=== PATIENT | female | born 1930 | race African-American/Black ===

== ENCOUNTER 2017-04-27 23:42 | Inpatient (IN) | payer MEDICARE, MEDICAID ==
[~2017-04-27] VITALS: Ht 167.6 cm; Wt 69.4 kg
[2017-04-28 00:56] LABS: INR 1.1; PARTIAL THROMBOPLASTIN TIME 23.7 sec (24.0-34.0); PROTHROMBIN TIME 11.1 sec
[2017-04-28 00:57] LABS: BASOPHILS % 0.4 % (0.0-2.0); EOSINOPHILS % 1.7 % (0.0-5.0); HEMATOCRIT. 37.6 % (36.0-48.0); HEMOGLOBIN. 12.2 g/dL (12.0-16.0); LYMPHOCYTES % 24.6 % (20.0-50.0); MEAN CORPUSCULAR HEMOGLOBIN 29.3 pg (28.0-32.0); MEAN CORPUSCULAR VOLUME 90.6 fL (81.0-99.0); MEAN PLATELET VOLUME 8.5 fl (7.4-10.4); MONOCYTES % 6.4 % (2.0-8.0); NEUTROPHILS % 66.9 % (40.0-76.0); PLATELET 187 x1000/uL (130-400); RED BLOOD CELL COUNT 4.15 mill/uL (4.2-5.4); RED CELL DISTRIBUTION WIDTH 17.2 % (11.6-14.6)
[2017-04-28 01:03] LABS: CARBON DIOXIDE 25 mEq/L (21-32); CHLORIDE 108 mEq/L (98-107); TROPONIN I < 0.02 ng/mL (0.00-0.04)
[2017-04-28 01:35] LABS: CLARITY URINE CLOUDY (CLEAR); COLOR URINE YELLOW (YELLOW); PH URINE 6.5 (4.5-8.0); PROTEIN URINE TRACE (NEGATIVE); SPECIFIC GRAVITY URINE 1.021 (1.005-1.030)
[2017-04-28 01:36] LABS: GLUCOSE URINE NEGATIVE (NEGATIVE); KETONES URINE NEGATIVE (NEGATIVE); LEUKOCYTE ESTERASE URINE 4+ (NEGATIVE); NITRITE URINE NEGATIVE (NEGATIVE); OCCULT BLOOD URINE 2+ (NEGATIVE)
[2017-04-28] MEDS ORDERED: PIPERACILLIN/TAZ 3.375G PREMIX 50 ML IV ONE (02:00)
[2017-04-28] MEDS ORDERED: SODIUM CHLORIDE 0.9% 1000ML BAG (SEPSIS BOLUS) IV ONE (02:00)
[2017-04-28 10:29] LABS: CARBON DIOXIDE 28 mEq/L (21-32); CHLORIDE 113 mEq/L (98-107)
[2017-04-28 10:30] LABS: BASOPHILS % 0.5 % (0.0-2.0); EOSINOPHILS % 3.4 % (0.0-5.0); HEMOGLOBIN. 11.5 g/dL (12.0-16.0); LYMPHOCYTES % 18.4 % (20.0-50.0); MEAN CORPUSCULAR HEMOGLOBIN 29.5 pg (28.0-32.0); MEAN CORPUSCULAR VOLUME 92.1 fL (81.0-99.0); MEAN PLATELET VOLUME 8.2 fl (7.4-10.4); MONOCYTES % 7.7 % (2.0-8.0); PLATELET 168 x1000/uL (130-400); RED BLOOD CELL COUNT 3.91 mill/uL (4.2-5.4); RED CELL DISTRIBUTION WIDTH 16.9 % (11.6-14.6)
[2017-04-28] MEDS ORDERED: SODIUM CHLORIDE 0.9% 1,000 ML IV SCH (10:30)
[2017-04-28] MEDS: PIPERACILLIN/TAZ 3.375G PREMIX 50 ML IV SCH ×2 (10:55→17:58)
[2017-04-28] MEDS: DEXTROSE 5% WATER 1,000 ML IV SCH (17:58)
[2017-04-28 23:30] VITALS: BP 131/82
[2017-04-29] VITALS (7 sets, daily range): BP systolic 111–131; BP diastolic 65–82
[2017-04-29] MEDS ORDERED: DEXTROSE 50% WATER 50ML SYRINGE IV PRN (00:15)
[2017-04-29] MEDS: PIPERACILLIN/TAZ 3.375G PREMIX 50 ML IV SCH ×4 (01:42→21:54)
[2017-04-29] MEDS: DEXTROSE 5% WATER 1,000 ML IV SCH ×2 (06:26→21:54)
[2017-04-29] MEDS: BLOOD SUGAR DIAGNOSTIC STRIP TEST SCH ×4 (06:26→21:18)
[2017-04-29] MEDS: INSULIN LISPRO 100 UNITS/ML SUBCUT SCH ×4 (08:21→21:31)
[2017-04-29] MEDS: ENOXAPARIN 40MG/0.4ML SYR SUBCUT SCH (15:57)
[2017-04-30] VITALS: BP 103/60
[2017-04-30 04:00] VITALS: BP 133/74
[2017-04-30] MEDS: PIPERACILLIN/TAZ 3.375G PREMIX 50 ML IV SCH ×2 (04:01→09:59)
[2017-04-30] MEDS: BLOOD SUGAR DIAGNOSTIC STRIP TEST SCH ×2 (06:23→12:38)
[2017-04-30] MEDS: INSULIN LISPRO 100 UNITS/ML SUBCUT SCH ×2 (07:57→12:38)
[2017-04-30 08:00] VITALS: BP 127/78
[2017-04-30] MEDS ORDERED: CEFEPIME IV (08:31)
[2017-04-30 09:41] LABS: BASOPHILS % 0.6 % (0.0-2.0); EOSINOPHILS % 3.5 % (0.0-5.0); HEMATOCRIT. 32.2 % (36.0-48.0); HEMOGLOBIN. 10.4 g/dL (12.0-16.0); LYMPHOCYTES % 17.8 % (20.0-50.0); MEAN CORPUSCULAR HEMOGLOBIN 29.4 pg (28.0-32.0); MEAN CORPUSCULAR VOLUME 90.9 fL (81.0-99.0); MEAN PLATELET VOLUME 8.2 fl (7.4-10.4); MONOCYTES % 6.3 % (2.0-8.0); NEUTROPHILS % 71.8 % (40.0-76.0); PLATELET 152 x1000/uL (130-400); RED BLOOD CELL COUNT 3.54 mill/uL (4.2-5.4); RED CELL DISTRIBUTION WIDTH 16.9 % (11.6-14.6)
[2017-04-30] MEDS: DEXTROSE 5% WATER 1,000 ML IV SCH (09:59)
[2017-04-30 10:00] LABS: CARBON DIOXIDE 27 mEq/L (21-32); CHLORIDE 108 mEq/L (98-107)
[2017-04-30 12:00] VITALS: BP 99/58
[2017-04-30] MEDS: ENOXAPARIN 40MG/0.4ML SYR SUBCUT SCH (14:43)
[2017-04-30 14:49] VITALS: BP 99/58
[2017-04-30 16:00] VITALS: BP 118/70
== END 2017-04-30 17:15 | DRG 871 ==
LOC: ER 23:49 → 6EST 04-28 03:12 → ENRESERV 04-28 18:46
PROVIDERS: ADMIT Family Medicine; ATTEND Family Medicine
DX: A41.9 Sepsis, unspecified organism (principal); E43 Unspecified severe protein-calorie malnutrition; N39.0 Urinary tract infection, site not specified; D63.8 Anemia in other chronic diseases classified elsewhere; E11.65 Type 2 diabetes mellitus with hyperglycemia; E86.0 Dehydration; F03.90 Unspecified dementia, unspecified severity, without behavioral disturbance, psychotic disturbance, mood disturbance, and anxiety; R13.10 Dysphagia, unspecified; Z95.0 Presence of cardiac pacemaker; Z93.1 Gastrostomy status; Z86.73 Personal history of transient ischemic attack (TIA), and cerebral infarction without residual deficits; Z68.24 Body mass index [BMI] 24.0-24.9, adult
CPT/HCPCS: 36415; 71010; 80053; 81001; 82962; 83605; 84484; 85025; 85610; 85730; 87040; 87077; 87086; 87186; 93005; 96365; 96366; 99291; A6261; J1650; J1815; J2543; J7030; J7070

== ENCOUNTER 2017-05-24 07:54 | Inpatient (IN) | payer MEDICARE, MEDICAID ==
[~2017-05-24] VITALS: Ht 167.6 cm; Wt 73.0 kg
[~2017-05-24 07:54] MED LIST: CEFEPIME IV
[2017-05-24] MEDS ORDERED: SODIUM CHLORIDE 0.9% 1,000 ML IV ONE (07:59)
[2017-05-24] MEDS ORDERED: VANCOMYCIN 1 G PREMIX 200 ML IV SCH (08:00)
[2017-05-24] MEDS ORDERED: PIPERACILLIN/TAZOBACTAM 3.375GM/50ML PREMIX IV ONE (08:00)
[2017-05-24] MEDS ORDERED: PIPERACILLIN/TAZ 3.375G PREMIX 50 ML IV ONE (08:15)
[2017-05-24] MEDS ORDERED: ACETAMINOPHEN 650MG SUPP PR ONE (08:15)
[2017-05-24 08:38] LABS: CHLORIDE 110 mEq/L (98-107)
[2017-05-24 08:39] LABS: INR 1.1; PROTHROMBIN TIME 11.1 sec
[2017-05-24 08:47] LABS: BASOPHILS % 0.4 % (0.0-2.0); CARBON DIOXIDE 28 mEq/L (21-32); EOSINOPHILS % 1.5 % (0.0-5.0); HEMATOCRIT. 40.1 % (36.0-48.0); HEMOGLOBIN. 12.8 g/dL (12.0-16.0); LYMPHOCYTES % 41.6 % (20.0-50.0); MEAN CORPUSCULAR HEMOGLOBIN 29.6 pg (28.0-32.0); MEAN CORPUSCULAR VOLUME 93.1 fL (81.0-99.0); MEAN PLATELET VOLUME 9.5 fl (7.4-10.4); MONOCYTES % 4.9 % (2.0-8.0); NEUTROPHILS % 51.6 % (40.0-76.0); PLATELET 145 x1000/uL (130-400); RED BLOOD CELL COUNT 4.31 mill/uL (4.2-5.4); RED CELL DISTRIBUTION WIDTH 17.6 % (11.6-14.6)
[2017-05-24 09:01] LABS: CLARITY URINE CLOUDY (CLEAR); COLOR URINE YELLOW (YELLOW); GLUCOSE URINE NEGATIVE (NEGATIVE); KETONES URINE NEGATIVE (NEGATIVE); LEUKOCYTE ESTERASE URINE 3+ (NEGATIVE); NITRITE URINE NEGATIVE (NEGATIVE); OCCULT BLOOD URINE 3+ (NEGATIVE); PROTEIN URINE 1+ (NEGATIVE); SPECIFIC GRAVITY URINE 1.022 (1.005-1.030)
[2017-05-24 11:10] VITALS: BP 123/79
[2017-05-24 11:45] VITALS: BP 123/79
[2017-05-24] MEDS ORDERED: MULT-1146 PO (14:44)
[2017-05-24] MEDS ORDERED: VITAMIN C GT (14:44)
[2017-05-24] MEDS ORDERED: DEXTROSE 50% WATER 50ML SYRINGE IV PRN (14:45)
[2017-05-24] MEDS ORDERED: SIMV20TA6 GT (14:46)
[2017-05-24] MEDS ORDERED: DONE10TA11 GT (14:46)
[2017-05-24] MEDS ORDERED: PIPERACILLIN/TAZ 3.375G PREMIX 50 ML IV SCH (16:00)
[2017-05-24] MEDS: PIPERACILLIN/TAZ 3.375G PREMIX 50 ML IV SCH ×2 (16:03→23:55)
[2017-05-24] MEDS: SODIUM CHLORIDE 0.45% 1,000 ML IV SCH (16:03)
[2017-05-24 16:39] VITALS: BP 122/76
[2017-05-24] MEDS ORDERED: VANCOMYCIN 500 MG PREMIX 100 ML IV NR (17:00)
[2017-05-24] MEDS: BLOOD SUGAR DIAGNOSTIC STRIP TEST SCH ×2 (18:14→23:55)
[2017-05-24] MEDS: INSULIN LISPRO 100 UNITS/ML SUBCUT SCH ×2 (18:15→21:23)
[2017-05-24] MEDS: ENOXAPARIN 40MG/0.4ML SYR SUBCUT SCH (19:07)
[2017-05-24 20:00] VITALS: BP 116/73
[2017-05-25] VITALS: BP 116/69
[2017-05-25] MEDS ORDERED: VANCOMYCIN 750 MG PREMIX 150 ML IV SCH (02:00)
[2017-05-25 04:00] VITALS: BP 112/77
[2017-05-25 05:21] LABS: BASOPHILS % 0.3 % (0.0-2.0); EOSINOPHILS % 3.4 % (0.0-5.0); HEMATOCRIT. 36.8 % (36.0-48.0); HEMOGLOBIN. 11.8 g/dL (12.0-16.0); LYMPHOCYTES % 16.3 % (20.0-50.0); MEAN CORPUSCULAR VOLUME 93.4 fL (81.0-99.0); MEAN PLATELET VOLUME 9.7 fl (7.4-10.4); MONOCYTES % 4.4 % (2.0-8.0); NEUTROPHILS % 75.6 % (40.0-76.0); PLATELET 125 x1000/uL (130-400); RED BLOOD CELL COUNT 3.94 mill/uL (4.2-5.4); RED CELL DISTRIBUTION WIDTH 17.7 % (11.6-14.6)
[2017-05-25] MEDS: VANCOMYCIN 1 G PREMIX 200 ML IV SCH ×2 (05:50→23:58)
[2017-05-25] MEDS: SODIUM CHLORIDE 0.45% 1,000 ML IV SCH ×2 (05:50→17:56)
[2017-05-25] MEDS: BLOOD SUGAR DIAGNOSTIC STRIP TEST SCH ×3 (05:50→18:00)
[2017-05-25 06:15] LABS: CARBON DIOXIDE 28 mEq/L (21-32); CHLORIDE 111 mEq/L (98-107)
[2017-05-25] MEDS: INSULIN LISPRO 100 UNITS/ML SUBCUT SCH ×4 (06:42→20:57)
[2017-05-25 08:14] VITALS: BP 120/72
[2017-05-25] MEDS: PIPERACILLIN/TAZ 3.375G PREMIX 50 ML IV SCH ×3 (08:46→23:59)
[2017-05-25] MEDS: ENOXAPARIN 40MG/0.4ML SYR SUBCUT SCH (08:47)
[2017-05-25 12:30] VITALS: BP 123/83
[2017-05-25 16:37] VITALS: BP 108/75
[2017-05-25 20:00] VITALS: BP 115/73
[2017-05-25] MEDS ORDERED: BISACODYL 5MG TABLET PO PRN (22:45)
[2017-05-25] MEDS: METOCLOPRAMIDE HCL 10MG TABLET PO SCH (23:58)
[2017-05-26] VITALS: BP 121/77
[2017-05-26] MEDS ORDERED: METOCLOPRAMIDE HCL 10MG TABLET PO SCH
[2017-05-26] MEDS: BLOOD SUGAR DIAGNOSTIC STRIP TEST SCH ×4 (00:18→17:16)
[2017-05-26 04:00] VITALS: BP 107/65
[2017-05-26] MEDS: SODIUM CHLORIDE 0.45% 1,000 ML IV SCH ×2 (04:35→16:28)
[2017-05-26] MEDS: METOCLOPRAMIDE HCL 10MG TABLET PO SCH ×3 (05:57→17:16)
[2017-05-26] MEDS: INSULIN LISPRO 100 UNITS/ML SUBCUT SCH ×4 (06:06→17:16)
[2017-05-26 07:37] LABS: CARBON DIOXIDE 27 mEq/L (21-32); CHLORIDE 108 mEq/L (98-107)
[2017-05-26 07:38] LABS: BASOPHILS % 0.3 % (0.0-2.0); EOSINOPHILS % 3.9 % (0.0-5.0); HEMATOCRIT. 33.9 % (36.0-48.0); HEMOGLOBIN. 11.2 g/dL (12.0-16.0); LYMPHOCYTES % 21.7 % (20.0-50.0); MEAN CORPUSCULAR HEMOGLOBIN 30.3 pg (28.0-32.0); MEAN CORPUSCULAR VOLUME 91.8 fL (81.0-99.0); MEAN PLATELET VOLUME 9.7 fl (7.4-10.4); MONOCYTES % 5.1 % (2.0-8.0); PLATELET 113 x1000/uL (130-400); RED BLOOD CELL COUNT 3.69 mill/uL (4.2-5.4); RED CELL DISTRIBUTION WIDTH 17.3 % (11.6-14.6)
[2017-05-26 08:01] VITALS: BP 111/65
[2017-05-26] MEDS: PIPERACILLIN/TAZ 3.375G PREMIX 50 ML IV SCH ×2 (08:16→16:27)
[2017-05-26] MEDS: ENOXAPARIN 40MG/0.4ML SYR SUBCUT SCH (08:19)
[2017-05-26] MEDS: VANCOMYCIN 750 MG PREMIX 150 ML IV SCH (11:19)
[2017-05-26 12:00] VITALS: BP 113/72
[2017-05-26 16:27] VITALS: BP 111/67
[2017-05-26 20:00] VITALS: BP 105/69
[2017-05-27] VITALS: BP 108/75
[2017-05-27] MEDS: METOCLOPRAMIDE HCL 10MG TABLET PO SCH ×4 (00:43→18:28)
[2017-05-27] MEDS: POTASSIUM CHLORIDE 10MEQ TABLET SR PO SCH ×2 (00:44→10:21)
[2017-05-27] MEDS: PIPERACILLIN/TAZ 3.375G PREMIX 50 ML IV SCH ×2 (00:44→07:54)
[2017-05-27] MEDS: BLOOD SUGAR DIAGNOSTIC STRIP TEST SCH ×4 (00:53→17:51)
[2017-05-27] MEDS: INSULIN LISPRO 100 UNITS/ML SUBCUT SCH ×4 (00:57→18:29)
[2017-05-27 04:00] VITALS: BP 140/91
[2017-05-27] MEDS: SODIUM CHLORIDE 0.45% 1,000 ML IV SCH ×2 (05:39→17:49)
[2017-05-27] MEDS: VANCOMYCIN 750 MG PREMIX 150 ML IV SCH (05:41)
[2017-05-27 06:56] LABS: BASOPHILS % 0.5 % (0.0-2.0); EOSINOPHILS % 4.9 % (0.0-5.0); HEMATOCRIT. 33.8 % (36.0-48.0); LYMPHOCYTES % 24.3 % (20.0-50.0); MEAN CORPUSCULAR HEMOGLOBIN 29.8 pg (28.0-32.0); MEAN CORPUSCULAR VOLUME 91.8 fL (81.0-99.0); MEAN PLATELET VOLUME 9.5 fl (7.4-10.4); MONOCYTES % 3.3 % (2.0-8.0); PLATELET 126 x1000/uL (130-400); RED BLOOD CELL COUNT 3.68 mill/uL (4.2-5.4); RED CELL DISTRIBUTION WIDTH 17.2 % (11.6-14.6)
[2017-05-27 07:03] LABS: CARBON DIOXIDE 26 mEq/L (21-32); CHLORIDE 106 mEq/L (98-107)
[2017-05-27 08:00] VITALS: BP 131/83
[2017-05-27] MEDS: ENOXAPARIN 40MG/0.4ML SYR SUBCUT SCH (09:56)
[2017-05-27 10:30] VITALS: BP 132/79
[2017-05-27 11:29] LABS: HEPATITIS B SURFACE ANTIGEN NEGATIVE
[2017-05-27 11:57] LABS: HEPATITIS C VIR.AB 0.33 INDEXVAL (0.00-0.80)
[2017-05-27 16:00] VITALS: BP 128/63
[2017-05-27 16:33] VITALS: BP 128/63
[2017-05-28] MEDS ORDERED: LEVOFLOXACIN 500MG TABLET PO SCH (11:00)
== END 2017-05-27 20:12 | disposition home or self-care (01) | DRG 871 ==
LOC: ER 08:16 → 5WST 09:49 → EDBEDREQ 09:53 → ENRESERV 09:56 → CANRESERV 09:56 → EDBEDREQSVC 10:00 → ENRESERV 10:02
PROVIDERS: ADMIT Internal Medicine; ATTEND Internal Medicine
DX: A41.9 Sepsis, unspecified organism (principal); G93.40 Encephalopathy, unspecified; N39.0 Urinary tract infection, site not specified; E11.9 Type 2 diabetes mellitus without complications; F03.90 Unspecified dementia, unspecified severity, without behavioral disturbance, psychotic disturbance, mood disturbance, and anxiety; I25.10 Atherosclerotic heart disease of native coronary artery without angina pectoris; I10 Essential (primary) hypertension; D64.9 Anemia, unspecified; E86.0 Dehydration; Z51.5 Encounter for palliative care; Z86.73 Personal history of transient ischemic attack (TIA), and cerebral infarction without residual deficits; Z95.1 Presence of aortocoronary bypass graft
CPT/HCPCS: 36415; 51702; 71010; 80053; 80202; 81001; 82962; 83605; 83735; 85025; 85610; 87040; 87086; 93005; 93970; 96365; 96367; 96375; 99291; J1650; J1815; J2543; J3370; J7030; J8597; A4315

== ENCOUNTER 2018-06-03 22:51 | Inpatient (IN) | payer MEDICARE, MEDICAID ==
[~2018-06-03] VITALS: Ht 165.1 cm; Wt 66.9 kg
[~2018-06-03 22:51] MED LIST changes: +DONE10TA11 GT; +MULT-1146 PO; +SIMV20TA6 GT; +VITAMIN C GT
[2018-06-03 23:00] VITALS: BP 115/70
[2018-06-03] MEDS: DEXT 5%/0.45% NACL 1000ML 1,000 ML IV SCH (23:46)
[2018-06-04] VITALS (7 sets, daily range): BP systolic 93–125; BP diastolic 59–75
[2018-06-04] MEDS ORDERED: ONDANSETRON HCL 4MG/2ML VIAL IV PRN
[2018-06-04] MEDS: PANTOPRAZOLE SODIUM 40 MG/VIAL IV SCH ×2 (04:05→08:58)
[2018-06-04 05:36] LABS: BASOPHILS % 0.2 % (0.0-2.0); EOSINOPHILS % 3.9 % (0.0-5.0); HEMATOCRIT. 37.6 % (36.0-48.0); HEMOGLOBIN. 12.2 g/dL (12.0-16.0); LYMPHOCYTES % 27.7 % (20.0-50.0); MEAN CORPUSCULAR HEMOGLOBIN 30.5 pg (28.0-32.0); MEAN CORPUSCULAR VOLUME 93.9 fL (81.0-99.0); MEAN PLATELET VOLUME 9.2 fl (7.4-10.4); MONOCYTES % 7.6 % (2.0-8.0); NEUTROPHILS % 60.6 % (40.0-76.0); PLATELET 160 x1000/uL (130-400); RED CELL DISTRIBUTION WIDTH 17.1 % (11.6-14.6)
[2018-06-04 06:08] LABS: CHLORIDE 107 mEq/L (98-107)
[2018-06-04] MEDS: DEXT 5%/0.45% NACL 1000ML 1,000 ML IV SCH (14:59)
[2018-06-04] MEDS ORDERED: PANTOPRAZOLE SODIUM 40 MG/VIAL IV SCH (16:00)
[2018-06-04 18:43] LABS: CLARITY URINE TURBID (CLEAR); COLOR URINE YELLOW (YELLOW); KETONES URINE NEGATIVE (NEGATIVE); LEUKOCYTE ESTERASE URINE 3+ (NEGATIVE); NITRITE URINE NEGATIVE (NEGATIVE); OCCULT BLOOD URINE 2+ (NEGATIVE); PH URINE 5.5 (4.5-8.0); PROTEIN URINE 2+ (NEGATIVE); SPECIFIC GRAVITY URINE 1.019 (1.005-1.030)
[2018-06-04] MEDS ORDERED: ACETAMINOPHEN 650MG SUPP PR PRN (19:15)
[2018-06-04 23:41] LABS: HEMATOCRIT 34.1 % (36.0-48.0); HEMOGLOBIN 11.2 g/dL (12.0-16.0)
[2018-06-05] VITALS: BP 119/70
[2018-06-05] MEDS: DEXT 5%/0.45% NACL 1000ML 1,000 ML IV SCH ×2 (02:26→18:03)
[2018-06-05 04:00] VITALS: BP 98/58
[2018-06-05 08:00] VITALS: BP 146/87
[2018-06-05 08:35] LABS: HEMATOCRIT 35.5 % (36.0-48.0); HEMOGLOBIN 11.7 g/dL (12.0-16.0); MEAN CORPUSCULAR VOLUME 94.1 fL (81.0-99.0); PLATELET 145 x1000/uL (130-400); RED BLOOD CELL COUNT 3.78 mill/uL (4.2-5.4); RED CELL DISTRIBUTION WIDTH 17.5 % (11.6-14.6)
[2018-06-05 08:41] LABS: CHLORIDE 108 mEq/L (98-107)
[2018-06-05] MEDS: PANTOPRAZOLE SODIUM 40 MG/VIAL IV SCH (09:07)
[2018-06-05 12:00] VITALS: BP 124/76
[2018-06-05] MEDS ORDERED: LEVOFLOXACIN 500MG PREMIX 100 ML IV NR (13:00)
[2018-06-05 16:00] VITALS: BP 106/67
[2018-06-05 16:47] LABS: HEMATOCRIT 34.7 % (36.0-48.0); HEMOGLOBIN 11.3 g/dL (12.0-16.0)
[2018-06-05] MEDS ORDERED: NYSTATIN POWDER 15GM TOP SCH (17:00)
[2018-06-05 20:00] VITALS: BP 129/75
[2018-06-06] VITALS: BP 100/56
[2018-06-06 04:00] VITALS: BP 90/52
[2018-06-06] MEDS: DEXT 5%/0.45% NACL 1000ML 1,000 ML IV SCH (04:30)
[2018-06-06 08:00] VITALS: BP 114/52
[2018-06-06] MEDS: PANTOPRAZOLE SODIUM 40 MG/VIAL IV SCH (09:13)
[2018-06-06 12:00] VITALS: BP 112/56
[2018-06-06] MEDS ORDERED: LEVOFLOXACIN 250MG PREMIX 50 ML IV SCH (13:00)
[2018-06-06 16:02] VITALS: BP 116/65
[2018-06-06 16:48] VITALS: BP 112/56
== END 2018-06-06 17:31 | DRG 377 ==
LOC: 7WST 22:51
PROVIDERS: ADMIT Internal Medicine; ATTEND Internal Medicine
DX: K92.1 Melena (principal); E43 Unspecified severe protein-calorie malnutrition; D68.59 Other primary thrombophilia; D64.9 Anemia, unspecified; E11.65 Type 2 diabetes mellitus with hyperglycemia; Z93.1 Gastrostomy status; R79.89 Other specified abnormal findings of blood chemistry; R13.10 Dysphagia, unspecified; F03.90 Unspecified dementia, unspecified severity, without behavioral disturbance, psychotic disturbance, mood disturbance, and anxiety; G20 Parkinson's disease; K64.9 Unspecified hemorrhoids; M41.9 Scoliosis, unspecified; Z79.899 Other long term (current) drug therapy; Z86.73 Personal history of transient ischemic attack (TIA), and cerebral infarction without residual deficits; Z95.0 Presence of cardiac pacemaker; Z68.24 Body mass index [BMI] 24.0-24.9, adult
CPT/HCPCS: 36415; 74018; 80053; 81003; 82270; 84439; 84443; 85014; 85018; 85025; 85027; 87086; C9113; J1956; J3490; A4315

== ENCOUNTER 2019-07-12 06:04 | Inpatient (IN) | payer MEDICARE, MEDICAID ==
[~2019-07-12] VITALS: Ht 162.6 cm; Wt 67.2 kg
[2019-07-12] VITALS (59 sets, daily range): BP systolic 72–141; BP diastolic 43–96
[2019-07-12] MEDS ORDERED: ACETAMINOPHEN 650MG SUPP PR ONE (06:15)
[2019-07-12] MEDS ORDERED: LEVOFLOXACIN 750MG PREMIX 150 ML IV ONE (06:15)
[2019-07-12] MEDS ORDERED: VANCOMYCIN 1 G PREMIX 200 ML IV ONE (06:15)
[2019-07-12] MEDS ORDERED: PIPERACILLIN/TAZ 3.375G PREMIX 50 ML IV ONE (06:15)
[2019-07-12] MEDS ORDERED: LORAZEPAM 2MG/ML CPJ ONE (06:29)
[2019-07-12] MEDS ORDERED: LORAZEPAM 2MG/ML CPJ IV ONE ×2 (06:30)
[2019-07-12] MEDS ORDERED: MIDAZOLAM HCL 50 MG in DEXTROSE 5% WATER 40 ML IV ONE ×2 (06:30→06:45)
[2019-07-12] MEDS ORDERED: SODIUM CHLORIDE 0.9% 1000ML BAG (SEPSIS BOLUS) IV ONE (06:45)
[2019-07-12 06:49] LABS: HEMATOCRIT. 44.1 % (36.0-48.0); HEMOGLOBIN. 13.5 g/dL (12.0-16.0); MEAN CORPUSCULAR HEMOGLOBIN 29.7 pg (28.0-32.0); MEAN CORPUSCULAR VOLUME 97.3 fL (81.0-99.0); MEAN PLATELET VOLUME 11.2 fl (7.4-10.4); PLATELET 122 x1000/uL (130-400); RED BLOOD CELL COUNT 4.53 mill/uL (4.2-5.4)
[2019-07-12 07:02] LABS: CHLORIDE 106 mEq/L (98-107)
[2019-07-12] MEDS ORDERED: VECURONIUM BROMIDE 10 MG/VIAL IV ONE (07:11)
[2019-07-12] MEDS ORDERED: ETOMIDATE 2MG/ML 10ML VIAL IV ONE ×2 (07:11→08:15)
[2019-07-12] MEDS ORDERED: SODIUM CHLORIDE 0.9% 10ML VIAL ONE (07:11)
[2019-07-12] MEDS ORDERED: SUCCINYLCHOLINE CHLORIDE 200MG/10ML IV ONE ×2 (07:11→08:15)
[2019-07-12] MEDS ORDERED: INSULIN REGULAR (DRIP) 100 UNITS in SODIUM CHLORIDE 0.9% 100 ML IV ONE ×2 (07:15→08:15)
[2019-07-12] MEDS ORDERED: INSULIN REGULAR (HUMULIN R) 300UNITS/3ML IV ONE (07:15)
[2019-07-12 07:17] LABS: INR 1.2; PROTHROMBIN TIME 11.9 sec (9.6-11.0)
[2019-07-12 07:25] LABS: BG CARBOXYHEMOGLOBIN 0.1 % (0.5-1.5); BG DEOXYHEMOGLOBIN 0.7 % (0.0-5.0); BG FRACTION INSPIRED OXYGEN 100; BG HCO3 ACT 19.9 mmol/L (22.0-26.0); BG METHEMOGLOBIN 0.3 % (0.0-1.5); BG OXYGEN SATURATION 99.3 % (92.0-98.5); BG OXYHEMOGLOBIN 98.9 % (94.0-97.0); BG PCO2 36.6 mmHg (35.0-45.0); BG PH 7.353 (7.350-7.450); BG PO2 283.8 mmHg (75.0-100.0); BG SAMPLE SITE RIGHT BRACHIAL; BG TIDAL VOLUME(mL) 500 mL; BG TOTAL HEMOGLOBIN 12.6 g/dL (12.0-18.0); BG VENT MODE VENT - A/C; BG VENT RATE 14 set
[2019-07-12 07:36] LABS: PLATELET ESTIMATE SLIGHTLY DECREASED
[2019-07-12] MEDS ORDERED: SODIUM BICARBONATE 8.4% 1 MEQ/ML 50ML SYR IV NR (09:45)
[2019-07-12] MEDS ORDERED: DEXTROSE 50% WATER 50ML SYRINGE IV PRN (09:45)
[2019-07-12] MEDS ORDERED: ALBUTEROL (0.083%) 2.5MG/3ML NEB HHN NR (09:45)
[2019-07-12] MEDS: SODIUM CHLORIDE 0.9% 1,000 ML IV SCH ×2 (10:08→19:45)
[2019-07-12] MEDS ORDERED: NOREPINEPHRINE 4MG/250ML PMX 250 ML IV ONE (10:15)
[2019-07-12] MEDS ORDERED: DEXTROSE 50% WATER 50ML SYRINGE IV NR (10:30)
[2019-07-12] MEDS ORDERED: INSULIN REGULAR (HUMULIN R) UD 100 UNITS/ML SYR IV NR (10:30)
[2019-07-12] MEDS ORDERED: INSULIN GLARGINE UD 100 UNITS/ML SYR SUBCUT NR (10:30)
[2019-07-12] MEDS ORDERED: ZINC220C2 PO (10:38)
[2019-07-12] MEDS ORDERED: DOCU50LI25 PO (10:38)
[2019-07-12] MEDS ORDERED: FAMO-135 MT (10:38)
[2019-07-12] MEDS ORDERED: METO5TAB86 MT ×2 (10:38)
[2019-07-12] MEDS ORDERED: MEMA5TAB7 MT (10:38)
[2019-07-12] MEDS ORDERED: TRAM50TA3 MT (10:38)
[2019-07-12] MEDS ORDERED: ALBU4TAB6 PO (10:38)
[2019-07-12] MEDS ORDERED: ASPI-1393 MT (10:38)
[2019-07-12] MEDS: NOREPINEPHRINE 4 MG in DEXTROSE 5% WATER 250 ML IV PRN (10:51)
[2019-07-12] MEDS: BLOOD SUGAR DIAGNOSTIC STRIP TEST SCH ×3 (12:38→21:46)
[2019-07-12] MEDS: PIPERACILLIN/TAZOBACTAM 3.375 G in DEXT 5% WATER 100 ML IV SCH ×2 (12:41→17:44)
[2019-07-12] MEDS: INSULIN LISPRO 100 UNITS/ML SUBCUT SCH ×3 (12:42→21:49)
[2019-07-12] MEDS ORDERED: MORPHINE SULFATE 2 MG/ML CPJ (NOT FOR IM USE) IV PRN (14:45)
[2019-07-12] MEDS ORDERED: ENOXAPARIN 30MG/0.3ML SYR SUBCUT SCH (17:00)
[2019-07-13] VITALS (91 sets, daily range): BP systolic 61–169; BP diastolic 39–98
[2019-07-13] MEDS: PIPERACILLIN/TAZOBACTAM 3.375 G in DEXT 5% WATER 100 ML IV SCH ×4 (00:28→17:22)
[2019-07-13] MEDS ORDERED: NOREPINEPHRINE BITARTRATE 1MG/ML 4ML IV ONE (03:32)
[2019-07-13] MEDS: NOREPINEPHRINE 4 MG in DEXTROSE 5% WATER 250 ML IV PRN (03:45)
[2019-07-13] MEDS ORDERED: SODIUM CHLORIDE 0.9% 250 ML IV PRN (04:00)
[2019-07-13 05:57] LABS: BASOPHILS % 0.2 % (0.0-2.0); EOSINOPHILS % 2.2 % (0.0-5.0); HEMATOCRIT. 41.3 % (36.0-48.0); LYMPHOCYTES % 13.3 % (20.0-50.0); MEAN CORPUSCULAR HEMOGLOBIN 29.8 pg (28.0-32.0); MEAN CORPUSCULAR VOLUME 94.5 fL (81.0-99.0); MONOCYTES % 5.1 % (2.0-8.0); NEUTROPHILS % 79.2 % (40.0-76.0); PLATELET 98 x1000/uL (130-400); RED BLOOD CELL COUNT 4.37 mill/uL (4.2-5.4); RED CELL DISTRIBUTION WIDTH 18.7 % (11.6-14.6)
[2019-07-13] MEDS: SODIUM CHLORIDE 0.9% 1,000 ML IV SCH (06:01)
[2019-07-13] MEDS: VANCOMYCIN 750 MG PREMIX 150 ML IV SCH (08:16)
[2019-07-13] MEDS: INSULIN LISPRO 100 UNITS/ML SUBCUT SCH ×4 (08:17→21:31)
[2019-07-13] MEDS: BLOOD SUGAR DIAGNOSTIC STRIP TEST SCH ×4 (08:31→21:30)
[2019-07-13 08:56] LABS: BG BASE EXCESS -1.8 mmol/L (-2.0-2.0); BG CARBOXYHEMOGLOBIN 0.4 % (0.5-1.5); BG DEOXYHEMOGLOBIN 3.5 % (0.0-5.0); BG FRACTION INSPIRED OXYGEN 50; BG HCO3 ACT 21.4 mmol/L (22.0-26.0); BG METHEMOGLOBIN 0.4 % (0.0-1.5); BG OXYGEN SATURATION 96.5 % (92.0-98.5); BG OXYHEMOGLOBIN 95.7 % (94.0-97.0); BG PCO2 31.2 mmHg (35.0-45.0); BG PH 7.454 (7.350-7.450); BG PO2 84.5 mmHg (75.0-100.0); BG SAMPLE SITE RIGHT RADIAL; BG TIDAL VOLUME(mL) 500 mL; BG TOTAL HEMOGLOBIN 11.6 g/dL (12.0-18.0); BG VENT MODE VENT - A/C; BG VENT RATE 14 set
[2019-07-13] MEDS ORDERED: DIPHENHYDRAMINE 50MG/ML VIAL IV PRN (13:15)
[2019-07-13] MEDS ORDERED: ONDANSETRON HCL 4MG/2ML INJ IV PRN (13:15)
[2019-07-13] MEDS ORDERED: CLONIDINE 0.1MG TABLET PO PRN (13:15)
[2019-07-13] MEDS ORDERED: LORAZEPAM 2MG/ML CPJ IV PRN (13:15)
[2019-07-13] MEDS ORDERED: HYDROCODONE/ACETAMINOPHEN 5/325MG TABLET PO PRN (13:15)
[2019-07-13] MEDS ORDERED: PHENYLEPHRINE 20 MG in DEXT 5% WATER 248 ML IV PRN (13:15)
[2019-07-13] MEDS ORDERED: LACTULOSE 20G/30ML UDC PO PRN (13:15)
[2019-07-13] MEDS ORDERED: INSULIN GLARGINE UD 100 UNITS/ML SYR SUBCUT NR (14:00)
[2019-07-13] MEDS: METHYLPREDNISOLONE SOD SUCC 40 MG/ML VIAL IV SCH (14:06)
[2019-07-13] MEDS: SODIUM CHLORIDE 0.45% 1,000 ML IV SCH (14:07)
[2019-07-13 16:32] LABS: CREATINE KINASE MB FRACTION 1.5 ng/mL (0.5-3.6)
[2019-07-13] MEDS: IPRATROPIUM/ALBUTEROL 0.5-3(2.5)MG/3ML NEB HHN SCH (20:47)
[2019-07-13 23:36] LABS: CLARITY URINE CLOUDY (CLEAR); COLOR URINE YELLOW (YELLOW); KETONES URINE NEGATIVE (NEGATIVE); LEUKOCYTE ESTERASE URINE 2+ (NEGATIVE); NITRITE URINE NEGATIVE (NEGATIVE); OCCULT BLOOD URINE 2+ (NEGATIVE); PROTEIN URINE 1+ (NEGATIVE); SPECIFIC GRAVITY URINE 1.019 (1.005-1.030); UROBILINOGEN URINE 0.2 E.U./dL (0.2-1.0)
[2019-07-14] VITALS (94 sets, daily range): BP systolic 82–162; BP diastolic 42–98
[2019-07-14] MEDS: SODIUM CHLORIDE 0.45% 1,000 ML IV SCH ×3 (00:13→20:31)
[2019-07-14] MEDS: PIPERACILLIN/TAZOBACTAM 3.375 G in DEXT 5% WATER 100 ML IV SCH ×4 (00:13→18:05)
[2019-07-14] MEDS: IPRATROPIUM/ALBUTEROL 0.5-3(2.5)MG/3ML NEB HHN SCH ×4 (01:32→20:06)
[2019-07-14] MEDS: METHYLPREDNISOLONE SOD SUCC 40 MG/ML VIAL IV SCH ×2 (02:16→14:20)
[2019-07-14 05:41] LABS: BASOPHILS % 0.2 % (0.0-2.0); HEMATOCRIT. 33.5 % (36.0-48.0); HEMOGLOBIN. 10.6 g/dL (12.0-16.0); LYMPHOCYTES % 11.8 % (20.0-50.0); MEAN CORPUSCULAR HEMOGLOBIN 29.6 pg (28.0-32.0); MEAN CORPUSCULAR VOLUME 93.6 fL (81.0-99.0); MEAN PLATELET VOLUME 11.2 fl (7.4-10.4); MONOCYTES % 2.6 % (2.0-8.0); NEUTROPHILS % 85.4 % (40.0-76.0); PLATELET 86 x1000/uL (130-400); RED BLOOD CELL COUNT 3.58 mill/uL (4.2-5.4); RED CELL DISTRIBUTION WIDTH 18.7 % (11.6-14.6)
[2019-07-14] MEDS: BLOOD SUGAR DIAGNOSTIC STRIP TEST SCH ×4 (07:50→20:31)
[2019-07-14 07:54] LABS: BG BASE EXCESS -1.3 mmol/L (-2.0-2.0); BG CARBOXYHEMOGLOBIN 0.1 % (0.5-1.5); BG DEOXYHEMOGLOBIN 1.2 % (0.0-5.0); BG FRACTION INSPIRED OXYGEN 50; BG HCO3 ACT 24.1 mmol/L (22.0-26.0); BG METHEMOGLOBIN 0.3 % (0.0-1.5); BG OXYGEN SATURATION 98.8 % (92.0-98.5); BG OXYHEMOGLOBIN 98.4 % (94.0-97.0); BG PH 7.366 (7.350-7.450); BG PO2 142.9 mmHg (75.0-100.0); BG SAMPLE SITE RIGHT RADIAL; BG TIDAL VOLUME(mL) 450 mL; BG TOTAL HEMOGLOBIN 10.2 g/dL (12.0-18.0); BG VENT MODE VENT - A/C; BG VENT RATE 12 set
[2019-07-14] MEDS: VANCOMYCIN 750 MG PREMIX 150 ML IV SCH (08:32)
[2019-07-14] MEDS: INSULIN LISPRO 100 UNITS/ML SUBCUT SCH ×4 (08:34→20:26)
[2019-07-14] MEDS ORDERED: ASPIRIN 81MG TABLET PO SCH (09:00)
[2019-07-14] MEDS ORDERED: INSULIN GLARGINE UD 100 UNITS/ML SYR SUBCUT SCH ×2 (10:00→18:30)
[2019-07-14] MEDS ORDERED: INSULIN GLARGINE UD 100 UNITS/ML SYR SUBCUT ONE (11:30)
[2019-07-14] MEDS ORDERED: INSULIN LISPRO 100 UNITS/ML SUBCUT ONE (14:00)
[2019-07-14] MEDS: FLUCONAZOLE 200 MG/100ML BAG 100 ML IV SCH (14:11)
[2019-07-14 15:54] LABS: CHLORIDE 110 mEq/L (98-107)
[2019-07-14] MEDS ORDERED: INSULIN LISPRO 100 UNITS/ML SUBCUT NR ×2 (16:30→16:45)
[2019-07-14 17:15] LABS: BG BASE EXCESS -2.8 mmol/L (-2.0-2.0); BG CARBOXYHEMOGLOBIN 0.3 % (0.5-1.5); BG DEOXYHEMOGLOBIN 1.2 % (0.0-5.0); BG HCO3 ACT 21.8 mmol/L (22.0-26.0); BG METHEMOGLOBIN 0.1 % (0.0-1.5); BG OXYGEN SATURATION 98.8 % (92.0-98.5); BG OXYHEMOGLOBIN 98.4 % (94.0-97.0); BG PH 7.388 (7.350-7.450); BG PO2 142.2 mmHg (75.0-100.0); BG SAMPLE SITE RIGHT RADIAL; BG TIDAL VOLUME(mL) 450 mL; BG TOTAL HEMOGLOBIN 10.5 g/dL (12.0-18.0); BG VENT MODE VENT - A/C; BG VENT RATE 12 set
[2019-07-14] MEDS ORDERED: NON FORMULARY PATIENT HOME MED PO SCH (19:15)
[2019-07-14] MEDS ORDERED: POTASSIUM CHLORIDE 20MEQ TABLET SR PO NR (21:00)
[2019-07-15] VITALS (83 sets, daily range): BP systolic 93–161; BP diastolic 50–107
[2019-07-15] MEDS: PIPERACILLIN/TAZOBACTAM 3.375 G in DEXT 5% WATER 100 ML IV SCH ×5 (00:08→23:46)
[2019-07-15] MEDS: INSULIN LISPRO 100 UNITS/ML SUBCUT SCH ×7 (00:09→23:47)
[2019-07-15] MEDS: BLOOD SUGAR DIAGNOSTIC STRIP TEST SCH ×7 (00:09→23:46)
[2019-07-15] MEDS: IPRATROPIUM/ALBUTEROL 0.5-3(2.5)MG/3ML NEB HHN SCH ×4 (01:57→20:51)
[2019-07-15] MEDS: METHYLPREDNISOLONE SOD SUCC 40 MG/ML VIAL IV SCH (02:05)
[2019-07-15 05:25] LABS: HEMOGLOBIN. 10.3 g/dL (12.0-16.0); MEAN CORPUSCULAR HEMOGLOBIN 30.2 pg (28.0-32.0); MEAN CORPUSCULAR VOLUME 94.2 fL (81.0-99.0); MEAN PLATELET VOLUME 11.7 fl (7.4-10.4); PLATELET 101 x1000/uL (130-400); RED CELL DISTRIBUTION WIDTH 17.7 % (11.6-14.6)
[2019-07-15 05:35] LABS: CHLORIDE 110 mEq/L (98-107)
[2019-07-15] MEDS: SODIUM CHLORIDE 0.45% 1,000 ML IV SCH ×2 (05:46→16:15)
[2019-07-15 08:34] LABS: BG BASE EXCESS -1.6 mmol/L (-2.0-2.0); BG CARBOXYHEMOGLOBIN 0.3 % (0.5-1.5); BG DEOXYHEMOGLOBIN 0.9 % (0.0-5.0); BG FRACTION INSPIRED OXYGEN 50; BG HCO3 ACT 23.7 mmol/L (22.0-26.0); BG METHEMOGLOBIN 0.3 % (0.0-1.5); BG OXYGEN SATURATION 99.1 % (92.0-98.5); BG OXYHEMOGLOBIN 98.5 % (94.0-97.0); BG PCO2 42.7 mmHg (35.0-45.0); BG PH 7.363 (7.350-7.450); BG PO2 161.9 mmHg (75.0-100.0); BG SAMPLE SITE RIGHT RADIAL; BG TIDAL VOLUME(mL) 450 mL; BG TOTAL HEMOGLOBIN 10.2 g/dL (12.0-18.0); BG VENT MODE VENT - A/C; BG VENT RATE 12 set
[2019-07-15] MEDS: FLUCONAZOLE 200 MG/100ML BAG 100 ML IV SCH (09:03)
[2019-07-15] MEDS: VANCOMYCIN 750 MG PREMIX 150 ML IV SCH (09:03)
[2019-07-15] MEDS: INSULIN GLARGINE UD 100 UNITS/ML SYR SUBCUT SCH ×2 (09:20→22:02)
[2019-07-15 09:54] LABS: PLATELET ESTIMATE SLIGHTLY DECREASED
[2019-07-15 12:22] LABS: BG BASE EXCESS -2.9 mmol/L (-2.0-2.0); BG CARBOXYHEMOGLOBIN 0.3 % (0.5-1.5); BG DEOXYHEMOGLOBIN 1.4 % (0.0-5.0); BG FRACTION INSPIRED OXYGEN 50; BG HCO3 ACT 22.3 mmol/L (22.0-26.0); BG METHEMOGLOBIN 0.3 % (0.0-1.5); BG OXYGEN SATURATION 98.6 % (92.0-98.5); BG PCO2 40.3 mmHg (35.0-45.0); BG PH 7.361 (7.350-7.450); BG PO2 141.5 mmHg (75.0-100.0); BG PRESSURE SUPPORT 10; BG SAMPLE SITE RIGHT RADIAL; BG TOTAL HEMOGLOBIN 10.2 g/dL (12.0-18.0); BG VENT MODE VENT - CPAP
[2019-07-15] MEDS: METOCLOPRAMIDE HCL 10MG/2ML VIAL IV SCH ×3 (13:19→23:45)
[2019-07-16] VITALS (50 sets, daily range): BP systolic 112–167; BP diastolic 55–102
[2019-07-16] MEDS: SODIUM CHLORIDE 0.45% 1,000 ML IV SCH ×3 (01:18→21:33)
[2019-07-16] MEDS: IPRATROPIUM/ALBUTEROL 0.5-3(2.5)MG/3ML NEB HHN SCH ×4 (02:05→20:40)
[2019-07-16] MEDS: BLOOD SUGAR DIAGNOSTIC STRIP TEST SCH ×5 (04:46→20:27)
[2019-07-16] MEDS: INSULIN LISPRO 100 UNITS/ML SUBCUT SCH ×5 (04:47→21:08)
[2019-07-16 05:36] LABS: CHLORIDE 111 mEq/L (98-107)
[2019-07-16 05:38] LABS: BASOPHILS % 0.1 % (0.0-2.0); EOSINOPHILS % 0.1 % (0.0-5.0); HEMATOCRIT. 30.2 % (36.0-48.0); HEMOGLOBIN. 9.7 g/dL (12.0-16.0); MEAN CORPUSCULAR HEMOGLOBIN 29.7 pg (28.0-32.0); MEAN CORPUSCULAR VOLUME 92.1 fL (81.0-99.0); MEAN PLATELET VOLUME 11.4 fl (7.4-10.4); NEUTROPHILS % 84.8 % (40.0-76.0); PLATELET 103 x1000/uL (130-400); RED BLOOD CELL COUNT 3.28 mill/uL (4.2-5.4); RED CELL DISTRIBUTION WIDTH 17.6 % (11.6-14.6)
[2019-07-16] MEDS: METOCLOPRAMIDE HCL 10MG/2ML VIAL IV SCH ×4 (05:58→23:51)
[2019-07-16] MEDS: PIPERACILLIN/TAZOBACTAM 3.375 G in DEXT 5% WATER 100 ML IV SCH ×4 (05:58→23:51)
[2019-07-16] MEDS: VANCOMYCIN 750 MG PREMIX 150 ML IV SCH (08:07)
[2019-07-16] MEDS: FLUCONAZOLE 200 MG/100ML BAG 100 ML IV SCH (09:12)
[2019-07-16] MEDS: METHYLPREDNISOLONE SOD SUCC 40 MG/ML VIAL IV SCH (09:21)
[2019-07-16] MEDS: INSULIN GLARGINE UD 100 UNITS/ML SYR SUBCUT SCH ×2 (10:35→21:33)
[2019-07-16 11:14] LABS: BG BASE EXCESS -1.8 mmol/L (-2.0-2.0); BG CARBOXYHEMOGLOBIN 0.3 % (0.5-1.5); BG DEOXYHEMOGLOBIN 1.4 % (0.0-5.0); BG FRACTION INSPIRED OXYGEN 50; BG HCO3 ACT 23.1 mmol/L (22.0-26.0); BG METHEMOGLOBIN 0.1 % (0.0-1.5); BG OXYGEN SATURATION 98.6 % (92.0-98.5); BG OXYHEMOGLOBIN 98.2 % (94.0-97.0); BG PCO2 39.6 mmHg (35.0-45.0); BG PH 7.383 (7.350-7.450); BG PO2 135.7 mmHg (75.0-100.0); BG PRESSURE SUPPORT 10; BG SAMPLE SITE RIGHT RADIAL; BG TOTAL HEMOGLOBIN 10.3 g/dL (12.0-18.0); BG VENT MODE MASK - CPAP
[2019-07-16] MEDS ORDERED: INSULIN GLARGINE UD 100 UNITS/ML SYR SUBCUT SCH (12:00)
[2019-07-17] VITALS (53 sets, daily range): BP systolic 81–181; BP diastolic 60–106
[2019-07-17] MEDS: INSULIN LISPRO 100 UNITS/ML SUBCUT SCH ×6 (00:08→21:54)
[2019-07-17] MEDS: BLOOD SUGAR DIAGNOSTIC STRIP TEST SCH ×6 (00:09→21:00)
[2019-07-17] MEDS: IPRATROPIUM/ALBUTEROL 0.5-3(2.5)MG/3ML NEB HHN SCH ×4 (02:10→19:49)
[2019-07-17] MEDS: METOCLOPRAMIDE HCL 10MG/2ML VIAL IV SCH ×3 (05:11→21:55)
[2019-07-17] MEDS: PIPERACILLIN/TAZOBACTAM 3.375 G in DEXT 5% WATER 100 ML IV SCH ×4 (05:11→23:38)
[2019-07-17 05:47] LABS: BASOPHILS % 0.1 % (0.0-2.0); HEMATOCRIT. 29.5 % (36.0-48.0); HEMOGLOBIN. 9.6 g/dL (12.0-16.0); LYMPHOCYTES % 8.4 % (20.0-50.0); MEAN CORPUSCULAR HEMOGLOBIN 29.8 pg (28.0-32.0); MEAN CORPUSCULAR VOLUME 91.2 fL (81.0-99.0); MEAN PLATELET VOLUME 10.5 fl (7.4-10.4); MONOCYTES % 4.5 % (2.0-8.0); PLATELET 101 x1000/uL (130-400); RED BLOOD CELL COUNT 3.23 mill/uL (4.2-5.4); RED CELL DISTRIBUTION WIDTH 17.5 % (11.6-14.6)
[2019-07-17] MEDS ORDERED: LIDOCAINE HCL 1% 20ML VIAL (Pyxis) INJ ONE (07:34)
[2019-07-17] MEDS ORDERED: SODIUM BICARBONATE 4% (2.4MEQ) 5ML VIAL IV ONE (07:34)
[2019-07-17] MEDS: SODIUM CHLORIDE 0.45% 1,000 ML IV SCH (07:52)
[2019-07-17] MEDS: METHYLPREDNISOLONE SOD SUCC 40 MG/ML VIAL IV SCH (08:20)
[2019-07-17] MEDS: FLUCONAZOLE 200 MG/100ML BAG 100 ML IV SCH (08:20)
[2019-07-17 08:39] LABS: BG BASE EXCESS -2.6 mmol/L (-2.0-2.0); BG CARBOXYHEMOGLOBIN 0.3 % (0.5-1.5); BG DEOXYHEMOGLOBIN 1.6 % (0.0-5.0); BG FRACTION INSPIRED OXYGEN 40; BG METHEMOGLOBIN 0.3 % (0.0-1.5); BG OXYGEN SATURATION 98.4 % (92.0-98.5); BG OXYHEMOGLOBIN 97.8 % (94.0-97.0); BG PCO2 37.3 mmHg (35.0-45.0); BG PH 7.389 (7.350-7.450); BG PO2 132.6 mmHg (75.0-100.0); BG PRESSURE SUPPORT 10; BG SAMPLE SITE RIGHT RADIAL; BG TOTAL HEMOGLOBIN 10.2 g/dL (12.0-18.0); BG VENT MODE VENT - CPAP
[2019-07-17] MEDS: INSULIN GLARGINE UD 100 UNITS/ML SYR SUBCUT SCH ×2 (09:45→21:54)
[2019-07-17 12:25] LABS: CHLORIDE 107 mEq/L (98-107)
[2019-07-17] MEDS: AMLODIPINE 5MG TABLET PO SCH ×2 (14:30→21:53)
[2019-07-18] VITALS (46 sets, daily range): BP systolic 111–154; BP diastolic 62–111
[2019-07-18] MEDS: IPRATROPIUM/ALBUTEROL 0.5-3(2.5)MG/3ML NEB HHN SCH ×4 (01:55→20:17)
[2019-07-18 05:41] LABS: HEMATOCRIT 31.2 % (36.0-48.0); HEMOGLOBIN 10.3 g/dL (12.0-16.0); MEAN CORPUSCULAR HEMOGLOBIN 29.9 pg (28.0-32.0); PLATELET 122 x1000/uL (130-400); RED BLOOD CELL COUNT 3.43 mill/uL (4.2-5.4); RED CELL DISTRIBUTION WIDTH 17.6 % (11.6-14.6)
[2019-07-18 05:49] LABS: CHLORIDE 109 mEq/L (98-107)
[2019-07-18] MEDS: INSULIN LISPRO 100 UNITS/ML SUBCUT SCH ×6 (05:53→21:04)
[2019-07-18] MEDS: PIPERACILLIN/TAZOBACTAM 3.375 G in DEXT 5% WATER 100 ML IV SCH ×3 (05:53→17:15)
[2019-07-18] MEDS: BLOOD SUGAR DIAGNOSTIC STRIP TEST SCH ×5 (07:49→20:30)
[2019-07-18] MEDS: METHYLPREDNISOLONE SOD SUCC 40 MG/ML VIAL IV SCH (08:12)
[2019-07-18] MEDS: AMLODIPINE 5MG TABLET PO SCH ×2 (08:12→20:55)
[2019-07-18] MEDS: METOCLOPRAMIDE HCL 10MG/2ML VIAL IV SCH ×2 (08:12→20:54)
[2019-07-18] MEDS: FLUCONAZOLE 200 MG/100ML BAG 100 ML IV SCH (08:13)
[2019-07-18] MEDS: INSULIN GLARGINE UD 100 UNITS/ML SYR SUBCUT SCH ×2 (09:36→21:05)
[2019-07-18] MEDS: FAMOTIDINE 20MG TABLET PO SCH (12:21)
[2019-07-18] MEDS: ENOXAPARIN 30MG/0.3ML SYR SUBCUT SCH (12:21)
[2019-07-19] VITALS (49 sets, daily range): BP systolic 99–141; BP diastolic 57–97
[2019-07-19] MEDS: BLOOD SUGAR DIAGNOSTIC STRIP TEST SCH ×5 (00:12→23:24)
[2019-07-19] MEDS: PIPERACILLIN/TAZOBACTAM 3.375 G in DEXT 5% WATER 100 ML IV SCH ×4 (00:32→18:22)
[2019-07-19] MEDS: INSULIN LISPRO 100 UNITS/ML SUBCUT SCH ×5 (00:38→23:25)
[2019-07-19] MEDS: IPRATROPIUM/ALBUTEROL 0.5-3(2.5)MG/3ML NEB HHN SCH ×4 (01:49→20:51)
[2019-07-19 05:38] LABS: HEMATOCRIT 30.4 % (36.0-48.0); MEAN CORPUSCULAR HEMOGLOBIN 29.8 pg (28.0-32.0); MEAN CORPUSCULAR VOLUME 90.6 fL (81.0-99.0); PLATELET 146 x1000/uL (130-400); RED BLOOD CELL COUNT 3.36 mill/uL (4.2-5.4); RED CELL DISTRIBUTION WIDTH 17.9 % (11.6-14.6)
[2019-07-19 05:43] LABS: CHLORIDE 106 mEq/L (98-107)
[2019-07-19 05:52] LABS: INR 1.1; PROTHROMBIN TIME 11.3 sec (9.6-11.0)
[2019-07-19 07:27] LABS: BG BASE EXCESS 1.9 mmol/L (-2.0-2.0); BG CARBOXYHEMOGLOBIN 0.3 % (0.5-1.5); BG DEOXYHEMOGLOBIN 0.9 % (0.0-5.0); BG HCO3 ACT 26.3 mmol/L (22.0-26.0); BG METHEMOGLOBIN 0.2 % (0.0-1.5); BG OXYGEN SATURATION 99.1 % (92.0-98.5); BG OXYHEMOGLOBIN 98.6 % (94.0-97.0); BG PCO2 40.6 mmHg (35.0-45.0); BG PO2 197.2 mmHg (75.0-100.0); BG SAMPLE SITE RIGHT RADIAL; BG TIDAL VOLUME(mL) 450 mL; BG TOTAL HEMOGLOBIN 10.1 g/dL (12.0-18.0); BG VENT MODE VENT - A/C; BG VENT RATE 12 set
[2019-07-19] MEDS: ENOXAPARIN 30MG/0.3ML SYR SUBCUT SCH (08:03)
[2019-07-19] MEDS: FAMOTIDINE 20MG TABLET PO SCH (08:03)
[2019-07-19] MEDS: METOCLOPRAMIDE HCL 10MG/2ML VIAL IV SCH ×2 (08:03→21:15)
[2019-07-19] MEDS: AMLODIPINE 5MG TABLET PO SCH ×2 (08:04→21:15)
[2019-07-19] MEDS: FLUCONAZOLE 100MG TABLET GT SCH (08:04)
[2019-07-19] MEDS: INSULIN GLARGINE UD 100 UNITS/ML SYR SUBCUT SCH (10:28)
[2019-07-19] MEDS ORDERED: INSULIN LISPRO 100 UNITS/ML SUBCUT SCH (17:50)
[2019-07-19] MEDS ORDERED: BLOOD SUGAR DIAGNOSTIC STRIP TEST SCH (17:50)
[2019-07-20] VITALS (41 sets, daily range): BP systolic 103–144; BP diastolic 46–86
[2019-07-20] MEDS: IPRATROPIUM/ALBUTEROL 0.5-3(2.5)MG/3ML NEB HHN SCH ×4 (01:26→20:19)
[2019-07-20 05:51] LABS: BASOPHILS % 0.1 % (0.0-2.0); EOSINOPHILS % 0.8 % (0.0-5.0); HEMATOCRIT. 32.1 % (36.0-48.0); HEMOGLOBIN. 10.6 g/dL (12.0-16.0); MEAN CORPUSCULAR VOLUME 91.5 fL (81.0-99.0); MEAN PLATELET VOLUME 9.1 fl (7.4-10.4); MONOCYTES % 2.6 % (2.0-8.0); NEUTROPHILS % 77.5 % (40.0-76.0); PLATELET 148 x1000/uL (130-400); RED BLOOD CELL COUNT 3.51 mill/uL (4.2-5.4)
[2019-07-20 05:53] LABS: INR 1.1; PARTIAL THROMBOPLASTIN TIME 21.4 sec (23.4-31.0)
[2019-07-20] MEDS: INSULIN LISPRO 100 UNITS/ML SUBCUT SCH ×4 (06:00→23:14)
[2019-07-20] MEDS: BLOOD SUGAR DIAGNOSTIC STRIP TEST SCH ×4 (06:00→23:14)
[2019-07-20 06:11] LABS: CHLORIDE 105 mEq/L (98-107)
[2019-07-20] MEDS: METOCLOPRAMIDE HCL 10MG/2ML VIAL IV SCH ×2 (08:19→20:58)
[2019-07-20] MEDS ORDERED: LIDOCAINE HCL/EPINEPHRINE 1%-EPI 1:100,000 20 ML VIAL ONE (08:34)
[2019-07-20] MEDS ORDERED: ENOXAPARIN 40MG/0.4ML SYR SUBCUT SCH (09:00)
[2019-07-20] MEDS ORDERED: ROCURONIUM BROMIDE 10MG/ML VIAL 5ML IV ONE (10:05)
[2019-07-20] MEDS ORDERED: MIDAZOLAM HCL 2 MG/2 ML VIAL ONE (10:05)
[2019-07-20] MEDS: FLUCONAZOLE 100MG TABLET GT SCH (11:39)
[2019-07-20] MEDS: AMLODIPINE 5MG TABLET PO SCH ×2 (11:40→20:59)
[2019-07-20] MEDS: FAMOTIDINE 20MG TABLET PO SCH (11:40)
[2019-07-20] MEDS ORDERED: DEXTROSE 50% WATER 50ML SYRINGE IV PRN (12:30)
[2019-07-21] VITALS (18 sets, daily range): BP systolic 87–134; BP diastolic 49–81
[2019-07-21] MEDS: IPRATROPIUM/ALBUTEROL 0.5-3(2.5)MG/3ML NEB HHN SCH ×4 (02:09→19:41)
[2019-07-21 05:46] LABS: BASOPHILS % 0.2 % (0.0-2.0); HEMATOCRIT. 30.1 % (36.0-48.0); HEMOGLOBIN. 9.8 g/dL (12.0-16.0); LYMPHOCYTES % 19.6 % (20.0-50.0); MEAN CORPUSCULAR HEMOGLOBIN 29.5 pg (28.0-32.0); MEAN CORPUSCULAR VOLUME 90.8 fL (81.0-99.0); MEAN PLATELET VOLUME 8.7 fl (7.4-10.4); MONOCYTES % 2.7 % (2.0-8.0); NEUTROPHILS % 76.5 % (40.0-76.0); PLATELET 150 x1000/uL (130-400); RED BLOOD CELL COUNT 3.32 mill/uL (4.2-5.4); RED CELL DISTRIBUTION WIDTH 18.1 % (11.6-14.6)
[2019-07-21] MEDS: BLOOD SUGAR DIAGNOSTIC STRIP TEST SCH ×4 (05:46→23:50)
[2019-07-21] MEDS: INSULIN LISPRO 100 UNITS/ML SUBCUT SCH ×4 (05:46→23:57)
[2019-07-21 06:11] LABS: CHLORIDE 103 mEq/L (98-107)
[2019-07-21] MEDS: FLUCONAZOLE 100MG TABLET GT SCH (08:42)
[2019-07-21] MEDS: METOCLOPRAMIDE HCL 10MG/2ML VIAL IV SCH ×2 (08:42→22:59)
[2019-07-21] MEDS: FAMOTIDINE 20MG TABLET PO SCH (08:42)
[2019-07-21] MEDS: AMLODIPINE 5MG TABLET PO SCH ×2 (08:56→21:00)
[2019-07-22] VITALS (12 sets, daily range): BP systolic 93–120; BP diastolic 59–75
[2019-07-22] MEDS: IPRATROPIUM/ALBUTEROL 0.5-3(2.5)MG/3ML NEB HHN SCH ×4 (01:24→20:08)
[2019-07-22] MEDS: BLOOD SUGAR DIAGNOSTIC STRIP TEST SCH ×3 (06:00→17:10)
[2019-07-22] MEDS: INSULIN LISPRO 100 UNITS/ML SUBCUT SCH ×3 (07:13→17:10)
[2019-07-22] MEDS: FAMOTIDINE 20MG TABLET PO SCH (08:30)
[2019-07-22] MEDS: METOCLOPRAMIDE HCL 10MG/2ML VIAL IV SCH (08:30)
[2019-07-22] MEDS: AMLODIPINE 5MG TABLET PO SCH ×2 (08:30→21:12)
[2019-07-22] MEDS: FLUCONAZOLE 100MG TABLET GT SCH (08:30)
[2019-07-22 13:07] LABS: HEMOGLOBIN 9.2 g/dL (12.0-16.0); MEAN CORPUSCULAR HEMOGLOBIN 29.8 pg (28.0-32.0); MEAN CORPUSCULAR VOLUME 90.8 fL (81.0-99.0); PLATELET 134 x1000/uL (130-400); RED BLOOD CELL COUNT 3.08 mill/uL (4.2-5.4); RED CELL DISTRIBUTION WIDTH 17.9 % (11.6-14.6)
[2019-07-22 13:10] LABS: CHLORIDE 103 mEq/L (98-107)
[2019-07-22] MEDS: CEFEPIME 1,000 MG in DEXTROSE 5% WATER 50 ML IV SCH (19:32)
[2019-07-22] MEDS: METRONIDAZOLE 500MG TABLET PO SCH (21:12)
[2019-07-23] VITALS (12 sets, daily range): BP systolic 94–136; BP diastolic 54–70
[2019-07-23] MEDS: BLOOD SUGAR DIAGNOSTIC STRIP TEST SCH ×5 (00:04→23:32)
[2019-07-23] MEDS: INSULIN LISPRO 100 UNITS/ML SUBCUT SCH ×5 (00:04→23:38)
[2019-07-23] MEDS: IPRATROPIUM/ALBUTEROL 0.5-3(2.5)MG/3ML NEB HHN SCH ×4 (02:13→20:55)
[2019-07-23] MEDS: CEFEPIME 1,000 MG in DEXTROSE 5% WATER 50 ML IV SCH ×2 (05:39→15:49)
[2019-07-23 06:50] LABS: CHLORIDE 103 mEq/L (98-107)
[2019-07-23 06:52] LABS: BASOPHILS % 0.3 % (0.0-2.0); EOSINOPHILS % 1.3 % (0.0-5.0); HEMATOCRIT. 27.9 % (36.0-48.0); LYMPHOCYTES % 18.1 % (20.0-50.0); MEAN CORPUSCULAR HEMOGLOBIN 29.6 pg (28.0-32.0); MEAN CORPUSCULAR VOLUME 91.5 fL (81.0-99.0); MEAN PLATELET VOLUME 8.7 fl (7.4-10.4); MONOCYTES % 5.1 % (2.0-8.0); NEUTROPHILS % 75.2 % (40.0-76.0); PLATELET 133 x1000/uL (130-400); RED BLOOD CELL COUNT 3.06 mill/uL (4.2-5.4)
[2019-07-23] MEDS: AMLODIPINE 5MG TABLET PO SCH ×2 (09:00→21:00)
[2019-07-23] MEDS: FAMOTIDINE 20MG TABLET PO SCH (09:18)
[2019-07-23] MEDS: METRONIDAZOLE 500MG TABLET PO SCH ×2 (09:18→21:09)
[2019-07-23] MEDS: FLUCONAZOLE 100MG TABLET GT SCH (09:18)
[2019-07-23] MEDS ORDERED: ACETAMINOPHEN 325MG TABLET PO PRN (18:00)
[2019-07-23] MEDS ORDERED: HYDROCODONE/ACETAMINOPHEN 5/325MG TABLET PO PRN (18:00)
[2019-07-23] MEDS ORDERED: ACETAMINOPHEN 650MG SUPP PR PRN (18:00)
[2019-07-23] MEDS ORDERED: HYDRALAZINE 20MG/ML VIAL IV PRN (18:00)
[2019-07-24] VITALS (12 sets, daily range): BP systolic 92–115; BP diastolic 51–87
[2019-07-24] MEDS: IPRATROPIUM/ALBUTEROL 0.5-3(2.5)MG/3ML NEB HHN SCH ×4 (03:12→20:18)
[2019-07-24] MEDS: CEFEPIME 1,000 MG in DEXTROSE 5% WATER 50 ML IV SCH ×2 (03:33→16:03)
[2019-07-24] MEDS: BLOOD SUGAR DIAGNOSTIC STRIP TEST SCH ×4 (05:15→23:48)
[2019-07-24] MEDS: INSULIN LISPRO 100 UNITS/ML SUBCUT SCH ×4 (05:20→23:54)
[2019-07-24 06:47] LABS: BASOPHILS % 0.3 % (0.0-2.0); EOSINOPHILS % 1.6 % (0.0-5.0); HEMATOCRIT. 28.9 % (36.0-48.0); HEMOGLOBIN. 9.5 g/dL (12.0-16.0); LYMPHOCYTES % 17.3 % (20.0-50.0); MEAN CORPUSCULAR VOLUME 91.3 fL (81.0-99.0); MEAN PLATELET VOLUME 8.9 fl (7.4-10.4); MONOCYTES % 5.7 % (2.0-8.0); NEUTROPHILS % 75.1 % (40.0-76.0); PLATELET 133 x1000/uL (130-400); RED BLOOD CELL COUNT 3.17 mill/uL (4.2-5.4); RED CELL DISTRIBUTION WIDTH 17.8 % (11.6-14.6)
[2019-07-24 06:52] LABS: CHLORIDE 103 mEq/L (98-107)
[2019-07-24] MEDS: AMLODIPINE 5MG TABLET PO SCH ×2 (09:00→20:40)
[2019-07-24] MEDS: FAMOTIDINE 20MG TABLET PO SCH (09:51)
[2019-07-24] MEDS: METRONIDAZOLE 500MG TABLET PO SCH ×2 (09:51→20:40)
[2019-07-24] MEDS: FLUCONAZOLE 100MG TABLET GT SCH (09:51)
[2019-07-25] VITALS (12 sets, daily range): BP systolic 85–109; BP diastolic 51–67
[2019-07-25] MEDS: IPRATROPIUM/ALBUTEROL 0.5-3(2.5)MG/3ML NEB HHN SCH ×4 (03:04→20:22)
[2019-07-25] MEDS: CEFEPIME 1,000 MG in DEXTROSE 5% WATER 50 ML IV SCH ×2 (03:14→15:43)
[2019-07-25] MEDS: BLOOD SUGAR DIAGNOSTIC STRIP TEST SCH ×4 (05:48→23:28)
[2019-07-25] MEDS: INSULIN LISPRO 100 UNITS/ML SUBCUT SCH ×4 (05:55→23:46)
[2019-07-25 08:34] LABS: HEMATOCRIT 28.2 % (36.0-48.0); HEMOGLOBIN 9.2 g/dL (12.0-16.0); MEAN CORPUSCULAR HEMOGLOBIN 29.6 pg (28.0-32.0); MEAN CORPUSCULAR VOLUME 90.5 fL (81.0-99.0); PLATELET 136 x1000/uL (130-400); RED BLOOD CELL COUNT 3.12 mill/uL (4.2-5.4); RED CELL DISTRIBUTION WIDTH 17.5 % (11.6-14.6)
[2019-07-25 08:46] LABS: CHLORIDE 105 mEq/L (98-107)
[2019-07-25 09:07] LABS: BG BASE EXCESS 0.7 mmol/L (-2.0-2.0); BG CARBOXYHEMOGLOBIN 0.3 % (0.5-1.5); BG DEOXYHEMOGLOBIN 1.7 % (0.0-5.0); BG FRACTION INSPIRED OXYGEN 40; BG HCO3 ACT 24.7 mmol/L (22.0-26.0); BG METHEMOGLOBIN 0.1 % (0.0-1.5); BG OXYGEN SATURATION 98.3 % (92.0-98.5); BG OXYHEMOGLOBIN 97.9 % (94.0-97.0); BG PCO2 37.1 mmHg (35.0-45.0); BG PH 7.441 (7.350-7.450); BG PO2 116.5 mmHg (75.0-100.0); BG SAMPLE SITE RIGHT RADIAL; BG TIDAL VOLUME(mL) 450 mL; BG TOTAL HEMOGLOBIN 9.9 g/dL (12.0-18.0); BG VENT MODE VENT - A/C; BG VENT RATE 12 set
[2019-07-25] MEDS: METRONIDAZOLE 500MG TABLET PO SCH ×2 (09:23→20:24)
[2019-07-25] MEDS: FAMOTIDINE 20MG TABLET PO SCH (09:24)
[2019-07-25] MEDS: AMLODIPINE 5MG TABLET PO SCH ×2 (09:24→20:18)
[2019-07-26] VITALS (12 sets, daily range): BP systolic 88–112; BP diastolic 47–73
[2019-07-26] MEDS: IPRATROPIUM/ALBUTEROL 0.5-3(2.5)MG/3ML NEB HHN SCH ×4 (03:07→20:27)
[2019-07-26] MEDS: CEFEPIME 1,000 MG in DEXTROSE 5% WATER 50 ML IV SCH ×2 (03:19→15:22)
[2019-07-26] MEDS: BLOOD SUGAR DIAGNOSTIC STRIP TEST SCH ×4 (05:12→23:56)
[2019-07-26] MEDS: INSULIN LISPRO 100 UNITS/ML SUBCUT SCH ×3 (05:24→18:03)
[2019-07-26] MEDS: AMLODIPINE 5MG TABLET PO SCH ×2 (09:00→21:00)
[2019-07-26] MEDS: METRONIDAZOLE 500MG TABLET PO SCH ×2 (09:10→21:07)
[2019-07-26] MEDS: FAMOTIDINE 20MG TABLET PO SCH (09:10)
[2019-07-27] VITALS (12 sets, daily range): BP systolic 101–124; BP diastolic 60–81
[2019-07-27] MEDS: INSULIN LISPRO 100 UNITS/ML SUBCUT SCH ×4 (00:04→18:41)
[2019-07-27] MEDS: IPRATROPIUM/ALBUTEROL 0.5-3(2.5)MG/3ML NEB HHN SCH ×4 (02:16→19:58)
[2019-07-27] MEDS: CEFEPIME 1,000 MG in DEXTROSE 5% WATER 50 ML IV SCH (04:18)
[2019-07-27] MEDS: BLOOD SUGAR DIAGNOSTIC STRIP TEST SCH ×3 (05:39→18:32)
[2019-07-27 05:45] LABS: BASOPHILS % 0.3 % (0.0-2.0); EOSINOPHILS % 1.5 % (0.0-5.0); HEMATOCRIT. 28.3 % (36.0-48.0); HEMOGLOBIN. 9.4 g/dL (12.0-16.0); LYMPHOCYTES % 17.4 % (20.0-50.0); MEAN CORPUSCULAR VOLUME 90.5 fL (81.0-99.0); MONOCYTES % 6.7 % (2.0-8.0); NEUTROPHILS % 74.1 % (40.0-76.0); PLATELET 121 x1000/uL (130-400); RED BLOOD CELL COUNT 3.13 mill/uL (4.2-5.4); RED CELL DISTRIBUTION WIDTH 17.2 % (11.6-14.6)
[2019-07-27 06:19] LABS: CHLORIDE 103 mEq/L (98-107)
[2019-07-27] MEDS: AMLODIPINE 5MG TABLET PO SCH ×2 (09:00→21:22)
[2019-07-27] MEDS: METRONIDAZOLE 500MG TABLET PO SCH (09:48)
[2019-07-27] MEDS: FAMOTIDINE 20MG TABLET PO SCH (09:48)
[2019-07-28] VITALS (12 sets, daily range): BP systolic 101–123; BP diastolic 52–69
[2019-07-28] MEDS: INSULIN LISPRO 100 UNITS/ML SUBCUT SCH ×5 (00:51→23:34)
[2019-07-28] MEDS: IPRATROPIUM/ALBUTEROL 0.5-3(2.5)MG/3ML NEB HHN SCH ×4 (01:47→20:30)
[2019-07-28] MEDS: BLOOD SUGAR DIAGNOSTIC STRIP TEST SCH ×5 (05:37→23:25)
[2019-07-28 07:14] LABS: HEMOGLOBIN 9.8 g/dL (12.0-16.0); MEAN CORPUSCULAR HEMOGLOBIN 29.9 pg (28.0-32.0); MEAN CORPUSCULAR VOLUME 91.1 fL (81.0-99.0); PLATELET 132 x1000/uL (130-400); RED BLOOD CELL COUNT 3.29 mill/uL (4.2-5.4); RED CELL DISTRIBUTION WIDTH 17.2 % (11.6-14.6)
[2019-07-28 07:31] LABS: CHLORIDE 103 mEq/L (98-107)
[2019-07-28] MEDS: AMLODIPINE 5MG TABLET PO SCH ×2 (09:00→21:00)
[2019-07-28] MEDS: FAMOTIDINE 20MG TABLET PO SCH (09:04)
[2019-07-28] MEDS ORDERED: INSULIN GLARGINE UD 100 UNITS/ML SYR SUBCUT SCH (10:00)
[2019-07-28] MEDS ORDERED: SODIUM CHLORIDE 0.45% 1,000 ML IV SCH (16:45)
[2019-07-29] VITALS (12 sets, daily range): BP systolic 90–117; BP diastolic 43–67
[2019-07-29] MEDS: IPRATROPIUM/ALBUTEROL 0.5-3(2.5)MG/3ML NEB HHN SCH ×4 (01:54→20:13)
[2019-07-29] MEDS: BLOOD SUGAR DIAGNOSTIC STRIP TEST SCH ×3 (06:00→18:27)
[2019-07-29] MEDS: INSULIN LISPRO 100 UNITS/ML SUBCUT SCH ×3 (06:42→18:33)
[2019-07-29] MEDS: AMLODIPINE 5MG TABLET PO SCH ×2 (09:00→20:37)
[2019-07-29] MEDS: FAMOTIDINE 20MG TABLET PO SCH (09:14)
[2019-07-29] MEDS: INSULIN GLARGINE UD 100 UNITS/ML SYR SUBCUT SCH (10:08)
[2019-07-30] VITALS (12 sets, daily range): BP systolic 96–127; BP diastolic 51–71
[2019-07-30] MEDS: BLOOD SUGAR DIAGNOSTIC STRIP TEST SCH ×5 (00:24→23:29)
[2019-07-30] MEDS: INSULIN LISPRO 100 UNITS/ML SUBCUT SCH ×5 (00:28→23:35)
[2019-07-30] MEDS: IPRATROPIUM/ALBUTEROL 0.5-3(2.5)MG/3ML NEB HHN SCH ×4 (01:27→21:38)
[2019-07-30 07:14] LABS: HEMATOCRIT 28.8 % (36.0-48.0); HEMOGLOBIN 9.5 g/dL (12.0-16.0); MEAN CORPUSCULAR HEMOGLOBIN 29.9 pg (28.0-32.0); PLATELET 137 x1000/uL (130-400); RED BLOOD CELL COUNT 3.16 mill/uL (4.2-5.4); RED CELL DISTRIBUTION WIDTH 16.9 % (11.6-14.6)
[2019-07-30 07:19] LABS: CHLORIDE 105 mEq/L (98-107)
[2019-07-30] MEDS: AMLODIPINE 5MG TABLET PO SCH ×2 (09:00→21:36)
[2019-07-30] MEDS: FAMOTIDINE 20MG TABLET PO SCH (09:04)
[2019-07-30] MEDS: INSULIN GLARGINE UD 100 UNITS/ML SYR SUBCUT SCH (10:12)
[2019-07-31] VITALS (11 sets, daily range): BP systolic 94–136; BP diastolic 54–87
[2019-07-31] MEDS: INSULIN LISPRO 100 UNITS/ML SUBCUT SCH ×3 (05:14→18:47)
[2019-07-31] MEDS: BLOOD SUGAR DIAGNOSTIC STRIP TEST SCH ×3 (05:15→18:21)
[2019-07-31] MEDS: IPRATROPIUM/ALBUTEROL 0.5-3(2.5)MG/3ML NEB HHN SCH ×3 (08:18→20:31)
[2019-07-31] MEDS: FAMOTIDINE 20MG TABLET PO SCH (09:50)
[2019-07-31] MEDS: AMLODIPINE 5MG TABLET PO SCH (09:51)
[2019-07-31] MEDS: INSULIN GLARGINE UD 100 UNITS/ML SYR SUBCUT SCH (10:00)
== END 2019-07-31 22:15 | DRG 4 ==
LOC: ER 06:04 → CVICU 06:37 → EDBEDREQTM 06:40 → EDBEDREQ 06:40 → ENRESERV 06:57 → 5EST 07-21 13:00
PROVIDERS: ADMIT Internal Medicine; ATTEND Internal Medicine
PROC: 0BH17EZ Insertion of Endotracheal Airway into Trachea, Via Natural or Artificial Opening (ICD-10-PCS; 2019-07-12)
PROC: 5A1955Z Respiratory Ventilation, Greater than 96 Consecutive Hours (ICD-10-PCS; 2019-07-12)
PROC: 06HY33Z Insertion of Infusion Device into Lower Vein, Percutaneous Approach (ICD-10-PCS; 2019-07-12)
PROC: 06HY33Z Insertion of Infusion Device into Lower Vein, Percutaneous Approach (ICD-10-PCS; 2019-07-12)
PROC: B54MZZA Ultrasonography of Right Upper Extremity Veins, Guidance (ICD-10-PCS; 2019-07-17)
PROC: 05HY33Z Insertion of Infusion Device into Upper Vein, Percutaneous Approach (ICD-10-PCS; 2019-07-17)
PROC: 0B110F4 Bypass Trachea to Cutaneous with Tracheostomy Device, Open Approach (ICD-10-PCS; principal; 2019-07-20)
PROC: 5A1955Z Respiratory Ventilation, Greater than 96 Consecutive Hours (ICD-10-PCS; 2019-07-20)
DX: A41.9 Sepsis, unspecified organism (principal); R65.21 Severe sepsis with septic shock; J18.9 Pneumonia, unspecified organism; J96.01 Acute respiratory failure with hypoxia; N17.9 Acute kidney failure, unspecified; G93.40 Encephalopathy, unspecified; E44.0 Moderate protein-calorie malnutrition; E87.2 Acidosis; B37.49 Other urogenital candidiasis; J98.11 Atelectasis; L97.409 Non-pressure chronic ulcer of unspecified heel and midfoot with unspecified severity; Z99.11 Dependence on respirator [ventilator] status; R13.10 Dysphagia, unspecified; E86.0 Dehydration; E87.5 Hyperkalemia; D69.6 Thrombocytopenia, unspecified; E11.65 Type 2 diabetes mellitus with hyperglycemia; B95.2 Enterococcus as the cause of diseases classified elsewhere; Z16.21 Resistance to vancomycin; D64.9 Anemia, unspecified; E11.621 Type 2 diabetes mellitus with foot ulcer; E78.5 Hyperlipidemia, unspecified; G20 Parkinson's disease; F02.80 Dementia in other diseases classified elsewhere, unspecified severity, without behavioral disturbance, psychotic disturbance, mood disturbance, and anxiety; I10 Essential (primary) hypertension; J45.909 Unspecified asthma, uncomplicated; R47.02 Dysphasia; Y95 Nosocomial condition; Z86.73 Personal history of transient ischemic attack (TIA), and cerebral infarction without residual deficits; Z95.0 Presence of cardiac pacemaker; Z22.322 Carrier or suspected carrier of Methicillin resistant Staphylococcus aureus; Z93.1 Gastrostomy status; Z68.25 Body mass index [BMI] 25.0-25.9, adult; Z79.899 Other long term (current) drug therapy; Z78.1 Physical restraint status; Z91.011 Allergy to milk products
CPT/HCPCS: 36415; 36600; 71045; 71250; 74018; 76937; 80048; 80202; 81003; 82010; 82140; 82375; 82550; 82553; 82805; 82962; 83036; 83605; 83880; 84132; 84145; 84484; 85027; 86850; 86900; 87070; 93005; 93306; 93970; 94002; 94003; 94640; 96365; 96367; 96368; 96375; 99291; A6261; C1725; J0330; J0692; J1450; J1650; J1815; J1956; J2060; J2250; J2370; J2543; J2765; J2920; J3370; J3490; J7030; J7040; J7050; J7060; J7620

== ENCOUNTER 2019-11-10 08:33 | Inpatient (IN) | payer MEDICARE, MEDICAID ==
[~2019-11-10] VITALS: Ht 167.6 cm; Wt 67.1 kg
[~2019-11-10 08:33] MED LIST changes: +ALBU4TAB6 PO; +ASPI-1497 MT; +DOCU50LI25 PO; +FAMO-135 MT; +MEMA5TAB7 MT; +METO5TAB86 MT; +SIMV-43 GT; -SIMV20TA6 GT; +TRAM50TA3 MT; +ZINC220C2 PO
[2019-11-10 08:58] LABS: BASOPHILS % 0.4 % (0.0-2.0); EOSINOPHILS % 0.5 % (0.0-5.0); HEMATOCRIT. 26.8 % (36.0-48.0); HEMOGLOBIN. 8.9 g/dL (12.0-16.0); LYMPHOCYTES % 9.4 % (20.0-50.0); MEAN CORPUSCULAR HEMOGLOBIN 29.8 pg (28.0-32.0); MEAN CORPUSCULAR VOLUME 89.4 fL (81.0-99.0); MEAN PLATELET VOLUME 8.9 fl (7.4-10.4); MONOCYTES % 3.4 % (2.0-8.0); NEUTROPHILS % 86.3 % (40.0-76.0); PLATELET 192 x1000/uL (130-400); RED BLOOD CELL COUNT 2.99 mill/uL (4.2-5.4); RED CELL DISTRIBUTION WIDTH 16.9 % (11.6-14.6)
[2019-11-10] MEDS ORDERED: ACETAMINOPHEN 650MG SUPP PR ONE (09:00)
[2019-11-10 09:05] LABS: CHLORIDE 93 mEq/L (98-107)
[2019-11-10 09:15] LABS: BG BASE EXCESS 2.5 mmol/L (-2.0-2.0); BG CARBOXYHEMOGLOBIN 0.3 % (0.5-1.5); BG DEOXYHEMOGLOBIN 6.4 % (0.0-5.0); BG FRACTION INSPIRED OXYGEN 50; BG HCO3 ACT 26.8 mmol/L (22.0-26.0); BG METHEMOGLOBIN 0.3 % (0.0-1.5); BG OXYGEN SATURATION 93.6 % (92.0-98.5); BG PCO2 40.4 mmHg (35.0-45.0); BG PO2 65.8 mmHg (75.0-100.0); BG SAMPLE SITE RIGHT RADIAL; BG TOTAL HEMOGLOBIN 9.6 g/dL (12.0-18.0); BG VENT MODE MASK - AEROSOL
[2019-11-10 09:23] LABS: INR 1.2; PROTHROMBIN TIME 11.9 sec (9.6-11.0)
[2019-11-10] MEDS ORDERED: PIPERACILLIN/TAZ 3.375G PREMIX 50 ML IV ONE (09:30)
[2019-11-10] MEDS ORDERED: VANCOMYCIN 1 G PREMIX 200 ML IV ONE (09:30)
[2019-11-10 10:14] LABS: CLARITY URINE TURBID (CLEAR); COLOR URINE YELLOW (YELLOW); KETONES URINE NEGATIVE (NEGATIVE); LEUKOCYTE ESTERASE URINE 3+ (NEGATIVE); NITRITE URINE NEGATIVE (NEGATIVE); OCCULT BLOOD URINE 1+ (NEGATIVE); PH URINE >=9.0 (4.5-8.0); PROTEIN URINE 3+ (NEGATIVE); SPECIFIC GRAVITY URINE 1.018 (1.005-1.030); UROBILINOGEN URINE 0.2 E.U./dL (0.2-1.0)
[2019-11-10] MEDS: SODIUM CHLORIDE 0.9% 1,000 ML IV SCH ×2 (10:33→22:45)
[2019-11-10] MEDS ORDERED: ENOXAPARIN 40MG/0.4ML SYR SUBCUT SCH (10:45)
[2019-11-10] MEDS ORDERED: MAGNESIUM/ALUMINUM HYDROXIDE/SIMETHICONE 30ML UDC PO PRN (10:45)
[2019-11-10] MEDS ORDERED: GUAIFENESIN 200MG/10ML SUGAR FREE UDC PO PRN (10:45)
[2019-11-10] MEDS ORDERED: IPRATROPIUM/ALBUTEROL 0.5-3(2.5)MG/3ML NEB NEB PRN (10:45)
[2019-11-10] MEDS ORDERED: ACETAMINOPHEN 325MG TABLET PO PRN (10:45)
[2019-11-10] MEDS ORDERED: DOCUSATE SODIUM 100MG CAPSULE PO PRN (10:45)
[2019-11-10] MEDS ORDERED: TRAMADOL 50MG TABLET PO PRN (10:45)
[2019-11-10] MEDS ORDERED: ONDANSETRON HCL 4MG/2ML INJ IV PRN (10:45)
[2019-11-10] MEDS ORDERED: CLONIDINE 0.1MG TABLET PO PRN (10:45)
[2019-11-10] MEDS ORDERED: NA PHOS,M-B/NA PHOS,DI-BA ENEMA 118ML PR PRN (10:45)
[2019-11-10 12:01] LABS: BG BASE EXCESS 1.9 mmol/L (-2.0-2.0); BG CARBOXYHEMOGLOBIN 0.3 % (0.5-1.5); BG DEOXYHEMOGLOBIN 5.6 % (0.0-5.0); BG FRACTION INSPIRED OXYGEN 98; BG HCO3 ACT 26.9 mmol/L (22.0-26.0); BG METHEMOGLOBIN 0.2 % (0.0-1.5); BG OXYGEN SATURATION 94.4 % (92.0-98.5); BG OXYHEMOGLOBIN 93.9 % (94.0-97.0); BG PCO2 43.7 mmHg (35.0-45.0); BG PH 7.407 (7.350-7.450); BG PO2 69.4 mmHg (75.0-100.0); BG SAMPLE SITE RIGHT RADIAL; BG TOTAL HEMOGLOBIN 11.2 g/dL (12.0-18.0); BG VENT MODE MASK - TRACH
[2019-11-10] MEDS ORDERED: MEROPENEM 1,000 MG in SODIUM CHLORIDE 0.9% 100 ML IV SCH (13:00)
[2019-11-10] MEDS: ENOXAPARIN 30MG/0.3ML SYR SUBCUT SCH (13:00)
[2019-11-10 13:33] LABS: T4 FREE 1.39 ng/dL (0.76-1.46)
[2019-11-10 14:14] LABS: VITAMIN B12 SERUM 1660 pg/mL (211-911)
[2019-11-10 14:16] LABS: FOLIC ACID (FOLATE) SERUM > 20.00 ng/mL (>5.38)
[2019-11-10 16:00] VITALS: BP_SYST 132; BP_SYST 136; BP_DIAS 52; BP_DIAS 69
[2019-11-10 18:18] VITALS: BP 110/60
[2019-11-10 20:00] VITALS: BP 117/63
[2019-11-10] MEDS ORDERED: FAMOTIDINE 20MG TABLET PO SCH (21:00)
[2019-11-10] MEDS ORDERED: ZOLPIDEM TARTRATE 5MG TABLET PO PRN (21:00)
[2019-11-10] MEDS: ASCORBIC ACID 500 MG TABLET PO SCH (21:55)
[2019-11-10] MEDS: MEROPENEM 1,000 MG in SODIUM CHLORIDE 0.9% 100 ML IV SCH (21:55)
[2019-11-10 22:00] VITALS: BP 149/64
[2019-11-10] MEDS: IPRATROPIUM/ALBUTEROL 0.5-3(2.5)MG/3ML NEB HHN SCH (22:44)
[2019-11-10] MEDS: FAMOTIDINE 40MG TABLET PO SCH (22:45)
[2019-11-11] VITALS (19 sets, daily range): BP systolic 100–156; BP diastolic 57–81
[2019-11-11] MEDS ORDERED: MEROPENEM 1,000 MG in SODIUM CHLORIDE 0.9% 100 ML IV SCH (01:00)
[2019-11-11] MEDS: IPRATROPIUM/ALBUTEROL 0.5-3(2.5)MG/3ML NEB HHN SCH ×5 (01:18→22:00)
[2019-11-11] MEDS: MEROPENEM 1,000 MG in SODIUM CHLORIDE 0.9% 100 ML IV SCH ×3 (02:40→17:43)
[2019-11-11] MEDS ORDERED: DEXTROSE 50% WATER 50ML SYRINGE IV PRN (09:15)
[2019-11-11 10:00] LABS: HEMATOCRIT. 28.1 % (36.0-48.0); HEMOGLOBIN. 9.1 g/dL (12.0-16.0); MEAN CORPUSCULAR VOLUME 89.8 fL (81.0-99.0); MEAN PLATELET VOLUME 8.2 fl (7.4-10.4); PLATELET 185 x1000/uL (130-400); RED BLOOD CELL COUNT 3.14 mill/uL (4.2-5.4)
[2019-11-11] MEDS: VANCOMYCIN 1 G PREMIX 200 ML IV SCH (10:03)
[2019-11-11] MEDS: ZINC SULFATE 220 MG ( 50 ) CAPSULE PO SCH (10:03)
[2019-11-11] MEDS: ENOXAPARIN 30MG/0.3ML SYR SUBCUT SCH (10:03)
[2019-11-11] MEDS: ASCORBIC ACID 500 MG TABLET PO SCH ×3 (10:03→21:44)
[2019-11-11] MEDS: ASPIRIN 325MG EC TABLET PO SCH (10:04)
[2019-11-11] MEDS: BLOOD SUGAR DIAGNOSTIC STRIP TEST SCH ×2 (12:09→17:43)
[2019-11-11] MEDS: INSULIN LISPRO 100 UNITS/ML SUBCUT SCH ×2 (13:10→18:20)
[2019-11-11 13:40] LABS: PLATELET ESTIMATE NORMAL
[2019-11-11] MEDS: FAMOTIDINE 40MG TABLET PO SCH ×2 (21:00→21:45)
[2019-11-12] VITALS (12 sets, daily range): BP systolic 123–150; BP diastolic 63–82
[2019-11-12] MEDS: IPRATROPIUM/ALBUTEROL 0.5-3(2.5)MG/3ML NEB HHN SCH ×6 (01:39→20:45)
[2019-11-12] MEDS: MEROPENEM 1,000 MG in SODIUM CHLORIDE 0.9% 100 ML IV SCH ×3 (03:52→18:38)
[2019-11-12] MEDS: SODIUM CHLORIDE 0.9% 1,000 ML IV SCH (03:53)
[2019-11-12] MEDS: INSULIN LISPRO 100 UNITS/ML SUBCUT SCH ×4 (06:00→18:37)
[2019-11-12] MEDS: BLOOD SUGAR DIAGNOSTIC STRIP TEST SCH ×4 (06:00→18:00)
[2019-11-12] MEDS: ASPIRIN 325MG EC TABLET PO SCH (09:00)
[2019-11-12] MEDS: ZINC SULFATE 220 MG ( 50 ) CAPSULE PO SCH (09:00)
[2019-11-12] MEDS: ASCORBIC ACID 500 MG TABLET PO SCH ×2 (09:00→21:19)
[2019-11-12 09:47] LABS: BG BASE EXCESS 2.9 mmol/L (-2.0-2.0); BG DEOXYHEMOGLOBIN 2.1 % (0.0-5.0); BG FRACTION INSPIRED OXYGEN 98; BG HCO3 ACT 27.4 mmol/L (22.0-26.0); BG METHEMOGLOBIN 0.3 % (0.0-1.5); BG OXYGEN SATURATION 97.9 % (92.0-98.5); BG OXYHEMOGLOBIN 97.6 % (94.0-97.0); BG PCO2 42.3 mmHg (35.0-45.0); BG PO2 103.9 mmHg (75.0-100.0); BG SAMPLE SITE RIGHT RADIAL; BG VENT MODE MASK - AEROSOL
[2019-11-12] MEDS: VANCOMYCIN 1 G PREMIX 200 ML IV SCH (10:11)
[2019-11-12] MEDS: ENOXAPARIN 30MG/0.3ML SYR SUBCUT SCH (11:39)
[2019-11-12] MEDS: DEXT 5%/0.9% NACL 1,000 ML IV SCH (11:40)
[2019-11-12 15:59] LABS: BG BASE EXCESS 3.9 mmol/L (-2.0-2.0); BG CARBOXYHEMOGLOBIN 0.3 % (0.5-1.5); BG DEOXYHEMOGLOBIN 0.7 % (0.0-5.0); BG FRACTION INSPIRED OXYGEN 80; BG HCO3 ACT 30.3 mmol/L (22.0-26.0); BG METHEMOGLOBIN 0.4 % (0.0-1.5); BG OXYGEN SATURATION 99.3 % (92.0-98.5); BG OXYHEMOGLOBIN 98.6 % (94.0-97.0); BG PCO2 56.6 mmHg (35.0-45.0); BG PH 7.347 (7.350-7.450); BG PRESSURE SUPPORT 12; BG SAMPLE SITE RIGHT RADIAL; BG TIDAL VOLUME(mL) 500 mL; BG TOTAL HEMOGLOBIN 8.5 g/dL (12.0-18.0); BG VENT MODE VENT - SIMV; BG VENT RATE 8 set
[2019-11-12] MEDS: ACETYLCYSTEINE 100MG/ML 10% VIAL 4ML INH SCH (16:49)
[2019-11-12] MEDS: FAMOTIDINE 40MG TABLET PO SCH (21:19)
[2019-11-13] VITALS (12 sets, daily range): BP systolic 133–160; BP diastolic 63–96
[2019-11-13] MEDS: BLOOD SUGAR DIAGNOSTIC STRIP TEST SCH ×4 (00:07→18:08)
[2019-11-13] MEDS: DEXT 5%/0.9% NACL 1,000 ML IV SCH ×2 (00:14→21:47)
[2019-11-13] MEDS: INSULIN LISPRO 100 UNITS/ML SUBCUT SCH ×4 (00:15→17:14)
[2019-11-13] MEDS: IPRATROPIUM/ALBUTEROL 0.5-3(2.5)MG/3ML NEB HHN SCH ×5 (01:30→21:20)
[2019-11-13] MEDS: MEROPENEM 1,000 MG in SODIUM CHLORIDE 0.9% 100 ML IV SCH ×3 (01:41→17:07)
[2019-11-13 06:45] LABS: HEMATOCRIT. 31.8 % (36.0-48.0); HEMOGLOBIN. 9.9 g/dL (12.0-16.0); MEAN CORPUSCULAR VOLUME 92.8 fL (81.0-99.0); MEAN PLATELET VOLUME 7.6 fl (7.4-10.4); PLATELET 229 x1000/uL (130-400); RED BLOOD CELL COUNT 3.43 mill/uL (4.2-5.4); RED CELL DISTRIBUTION WIDTH 17.4 % (11.6-14.6)
[2019-11-13 06:50] LABS: CHLORIDE 111 mEq/L (98-107)
[2019-11-13 08:10] LABS: PLATELET ESTIMATE NORMAL
[2019-11-13] MEDS: ACETYLCYSTEINE 100MG/ML 10% VIAL 4ML INH SCH ×3 (08:36→16:11)
[2019-11-13] MEDS: ASCORBIC ACID 500 MG TABLET PO SCH ×2 (09:16→20:45)
[2019-11-13] MEDS: VANCOMYCIN 1 G PREMIX 200 ML IV SCH (09:16)
[2019-11-13] MEDS: ASPIRIN 325MG EC TABLET PO SCH (09:16)
[2019-11-13] MEDS: ZINC SULFATE 220 MG ( 50 ) CAPSULE PO SCH (09:17)
[2019-11-13] MEDS: ENOXAPARIN 30MG/0.3ML SYR SUBCUT SCH (09:18)
[2019-11-13] MEDS: FAMOTIDINE 40MG TABLET PO SCH (20:45)
[2019-11-14] VITALS (12 sets, daily range): BP systolic 136–161; BP diastolic 70–86
[2019-11-14] MEDS: IPRATROPIUM/ALBUTEROL 0.5-3(2.5)MG/3ML NEB HHN SCH ×6 (00:35→19:44)
[2019-11-14] MEDS: ACETYLCYSTEINE 100MG/ML 10% VIAL 4ML INH SCH ×3 (00:35→15:17)
[2019-11-14] MEDS: BLOOD SUGAR DIAGNOSTIC STRIP TEST SCH ×4 (00:45→18:01)
[2019-11-14] MEDS: INSULIN LISPRO 100 UNITS/ML SUBCUT SCH ×4 (00:50→17:56)
[2019-11-14] MEDS: MEROPENEM 1,000 MG in SODIUM CHLORIDE 0.9% 100 ML IV SCH ×3 (01:01→18:02)
[2019-11-14] MEDS: ASCORBIC ACID 500 MG TABLET PO SCH ×2 (08:24→20:46)
[2019-11-14] MEDS: ENOXAPARIN 30MG/0.3ML SYR SUBCUT SCH (08:24)
[2019-11-14] MEDS: ASPIRIN 325MG EC TABLET PO SCH (08:24)
[2019-11-14] MEDS: ZINC SULFATE 220 MG ( 50 ) CAPSULE PO SCH (08:24)
[2019-11-14] MEDS: VANCOMYCIN 1 G PREMIX 200 ML IV SCH (08:41)
[2019-11-14] MEDS: DEXT 5%/0.9% NACL 1,000 ML IV SCH ×2 (13:24→16:50)
[2019-11-14] MEDS: FAMOTIDINE 40MG TABLET PO SCH (20:46)
[2019-11-15] VITALS (12 sets, daily range): BP systolic 130–151; BP diastolic 59–78
[2019-11-15] MEDS: INSULIN LISPRO 100 UNITS/ML SUBCUT SCH ×4 (00:06→16:57)
[2019-11-15] MEDS: ACETYLCYSTEINE 100MG/ML 10% VIAL 4ML INH SCH ×3 (00:14→15:20)
[2019-11-15] MEDS: IPRATROPIUM/ALBUTEROL 0.5-3(2.5)MG/3ML NEB HHN SCH ×6 (00:14→20:19)
[2019-11-15] MEDS: MEROPENEM 1,000 MG in SODIUM CHLORIDE 0.9% 100 ML IV SCH ×3 (01:21→16:51)
[2019-11-15] MEDS: BLOOD SUGAR DIAGNOSTIC STRIP TEST SCH ×4 (05:08→16:51)
[2019-11-15] MEDS: DEXT 5%/0.9% NACL 1,000 ML IV SCH ×2 (05:10→23:47)
[2019-11-15] MEDS: ENOXAPARIN 30MG/0.3ML SYR SUBCUT SCH (08:57)
[2019-11-15] MEDS: VANCOMYCIN 1 G PREMIX 200 ML IV SCH (08:57)
[2019-11-15] MEDS: ASPIRIN 325MG EC TABLET PO SCH (08:57)
[2019-11-15] MEDS: ASCORBIC ACID 500 MG TABLET PO SCH ×2 (08:58→20:56)
[2019-11-15] MEDS: ZINC SULFATE 220 MG ( 50 ) CAPSULE PO SCH (08:58)
[2019-11-15] MEDS: FAMOTIDINE 40MG TABLET PO SCH (20:56)
[2019-11-16] VITALS (11 sets, daily range): BP systolic 133–155; BP diastolic 54–88
[2019-11-16] MEDS: IPRATROPIUM/ALBUTEROL 0.5-3(2.5)MG/3ML NEB HHN SCH ×6 (00:02→21:13)
[2019-11-16] MEDS: BLOOD SUGAR DIAGNOSTIC STRIP TEST SCH ×4 (00:04→18:02)
[2019-11-16] MEDS: INSULIN LISPRO 100 UNITS/ML SUBCUT SCH ×4 (00:05→18:00)
[2019-11-16] MEDS: MEROPENEM 1,000 MG in SODIUM CHLORIDE 0.9% 100 ML IV SCH ×3 (02:02→18:22)
[2019-11-16] MEDS: ACETYLCYSTEINE 100MG/ML 10% VIAL 4ML INH SCH ×3 (07:51→16:11)
[2019-11-16] MEDS: ZINC SULFATE 220 MG ( 50 ) CAPSULE PO SCH (09:26)
[2019-11-16] MEDS: ASPIRIN 325MG EC TABLET PO SCH (09:26)
[2019-11-16] MEDS: ASCORBIC ACID 500 MG TABLET PO SCH ×2 (09:26→21:01)
[2019-11-16] MEDS: ENOXAPARIN 40MG/0.4ML SYR SUBCUT SCH (09:27)
[2019-11-16] MEDS: VANCOMYCIN 1 G PREMIX 200 ML IV SCH (09:27)
[2019-11-16] MEDS: RACEPINEPHRINE 2.25% 0.5ML NEB VIAL HHN PRN ×2 (17:45→21:13)
[2019-11-16] MEDS: DEXT 5%/0.9% NACL 1,000 ML IV SCH (19:38)
[2019-11-16] MEDS: FAMOTIDINE 40MG TABLET PO SCH (21:01)
[2019-11-17] VITALS (12 sets, daily range): BP systolic 112–153; BP diastolic 61–75
[2019-11-17] MEDS: BLOOD SUGAR DIAGNOSTIC STRIP TEST SCH ×4 (00:45→17:08)
[2019-11-17] MEDS: ACETYLCYSTEINE 100MG/ML 10% VIAL 4ML INH SCH ×2 (00:46→16:40)
[2019-11-17] MEDS: IPRATROPIUM/ALBUTEROL 0.5-3(2.5)MG/3ML NEB HHN SCH ×6 (00:46→21:06)
[2019-11-17] MEDS: INSULIN LISPRO 100 UNITS/ML SUBCUT SCH ×4 (00:52→17:36)
[2019-11-17] MEDS: MEROPENEM 1,000 MG in SODIUM CHLORIDE 0.9% 100 ML IV SCH ×3 (02:10→17:29)
[2019-11-17] MEDS: ENOXAPARIN 40MG/0.4ML SYR SUBCUT SCH (08:49)
[2019-11-17] MEDS: ASPIRIN 325MG EC TABLET PO SCH (08:49)
[2019-11-17] MEDS: VANCOMYCIN 1 G PREMIX 200 ML IV SCH (08:49)
[2019-11-17] MEDS: ASCORBIC ACID 500 MG TABLET PO SCH ×2 (08:49→21:36)
[2019-11-17] MEDS: ZINC SULFATE 220 MG ( 50 ) CAPSULE PO SCH (08:49)
[2019-11-17] MEDS: DEXT 5%/0.9% NACL 1,000 ML IV SCH (11:21)
[2019-11-17] MEDS: FAMOTIDINE 40MG TABLET PO SCH (21:36)
[2019-11-18] VITALS (12 sets, daily range): BP systolic 131–154; BP diastolic 60–90
[2019-11-18] MEDS: BLOOD SUGAR DIAGNOSTIC STRIP TEST SCH ×5 (00:13→23:06)
[2019-11-18] MEDS: DEXT 5%/0.9% NACL 1,000 ML IV SCH ×3 (00:17→21:02)
[2019-11-18] MEDS: INSULIN LISPRO 100 UNITS/ML SUBCUT SCH ×5 (00:18→23:18)
[2019-11-18] MEDS: IPRATROPIUM/ALBUTEROL 0.5-3(2.5)MG/3ML NEB HHN SCH ×6 (01:08→20:14)
[2019-11-18 07:34] LABS: BASOPHILS % 0.6 % (0.0-2.0); LYMPHOCYTES % 24.2 % (20.0-50.0); MEAN CORPUSCULAR HEMOGLOBIN 30.1 pg (28.0-32.0); MEAN CORPUSCULAR VOLUME 90.4 fL (81.0-99.0); MEAN PLATELET VOLUME 7.9 fl (7.4-10.4); MONOCYTES % 2.4 % (2.0-8.0); NEUTROPHILS % 68.8 % (40.0-76.0); PLATELET 266 x1000/uL (130-400); RED BLOOD CELL COUNT 2.99 mill/uL (4.2-5.4); RED CELL DISTRIBUTION WIDTH 16.6 % (11.6-14.6)
[2019-11-18 08:24] LABS: CHLORIDE 106 mEq/L (98-107)
[2019-11-18] MEDS: VANCOMYCIN 1 G PREMIX 200 ML IV SCH (09:13)
[2019-11-18] MEDS: ENOXAPARIN 40MG/0.4ML SYR SUBCUT SCH (09:13)
[2019-11-18] MEDS: ASCORBIC ACID 500 MG TABLET PO SCH ×2 (09:13→21:02)
[2019-11-18] MEDS: ZINC SULFATE 220 MG ( 50 ) CAPSULE PO SCH (09:13)
[2019-11-18] MEDS: ASPIRIN 325MG EC TABLET PO SCH (09:13)
[2019-11-18] MEDS: FAMOTIDINE 20MG TABLET PO SCH (21:02)
[2019-11-19] VITALS (11 sets, daily range): BP systolic 113–134; BP diastolic 62–79
[2019-11-19] MEDS: IPRATROPIUM/ALBUTEROL 0.5-3(2.5)MG/3ML NEB HHN SCH ×6 (00:25→21:00)
[2019-11-19] MEDS: INSULIN LISPRO 100 UNITS/ML SUBCUT SCH ×3 (05:58→18:33)
[2019-11-19] MEDS: BLOOD SUGAR DIAGNOSTIC STRIP TEST SCH ×3 (05:58→18:15)
[2019-11-19] MEDS: ENOXAPARIN 40MG/0.4ML SYR SUBCUT SCH (08:48)
[2019-11-19] MEDS: ZINC SULFATE 220 MG ( 50 ) CAPSULE PO SCH (08:48)
[2019-11-19] MEDS: ASPIRIN 325MG EC TABLET PO SCH (08:48)
[2019-11-19] MEDS: ASCORBIC ACID 500 MG TABLET PO SCH ×2 (09:06→20:05)
[2019-11-19] MEDS: VANCOMYCIN 1 G PREMIX 200 ML IV SCH (09:58)
[2019-11-19] MEDS: DEXT 5%/0.9% NACL 1,000 ML IV SCH (14:24)
[2019-11-19] MEDS: FAMOTIDINE 20MG TABLET PO SCH (20:05)
[2019-11-20] VITALS (12 sets, daily range): BP systolic 113–157; BP diastolic 53–79
[2019-11-20] MEDS: IPRATROPIUM/ALBUTEROL 0.5-3(2.5)MG/3ML NEB HHN SCH ×6 (00:27→20:17)
[2019-11-20] MEDS: BLOOD SUGAR DIAGNOSTIC STRIP TEST SCH ×5 (01:02→23:23)
[2019-11-20] MEDS: INSULIN LISPRO 100 UNITS/ML SUBCUT SCH ×5 (01:18→23:22)
[2019-11-20] MEDS: DEXT 5%/0.9% NACL 1,000 ML IV SCH ×2 (03:40→19:37)
[2019-11-20 06:50] LABS: BASOPHILS % 0.4 % (0.0-2.0); HEMATOCRIT. 21.4 % (36.0-48.0); LYMPHOCYTES % 28.1 % (20.0-50.0); MEAN CORPUSCULAR HEMOGLOBIN 30.1 pg (28.0-32.0); MEAN CORPUSCULAR VOLUME 92.5 fL (81.0-99.0); MEAN PLATELET VOLUME 8.4 fl (7.4-10.4); MONOCYTES % 4.3 % (2.0-8.0); NEUTROPHILS % 64.2 % (40.0-76.0); PLATELET 195 x1000/uL (130-400); RED BLOOD CELL COUNT 2.31 mill/uL (4.2-5.4)
[2019-11-20] MEDS: ASCORBIC ACID 500 MG TABLET PO SCH ×2 (08:26→23:21)
[2019-11-20] MEDS: ASPIRIN 325MG EC TABLET PO SCH (08:26)
[2019-11-20] MEDS: ZINC SULFATE 220 MG ( 50 ) CAPSULE PO SCH (08:26)
[2019-11-20] MEDS: ENOXAPARIN 40MG/0.4ML SYR SUBCUT SCH (08:26)
[2019-11-20] MEDS: VANCOMYCIN 1 G PREMIX 200 ML IV SCH (08:26)
[2019-11-20 11:34] LABS: HEMOGLOBIN 8.6 g/dL (12.0-16.0)
[2019-11-20 15:07] LABS: CHLORIDE 108 mEq/L (98-107)
[2019-11-20] MEDS: FAMOTIDINE 20MG TABLET PO SCH (23:21)
[2019-11-21] VITALS (14 sets, daily range): BP systolic 119–144; BP diastolic 56–79
[2019-11-21] MEDS: IPRATROPIUM/ALBUTEROL 0.5-3(2.5)MG/3ML NEB HHN SCH ×6 (00:14→21:00)
[2019-11-21] MEDS: BLOOD SUGAR DIAGNOSTIC STRIP TEST SCH ×4 (05:13→23:49)
[2019-11-21] MEDS: INSULIN LISPRO 100 UNITS/ML SUBCUT SCH ×4 (05:13→23:52)
[2019-11-21] MEDS: DEXT 5%/0.9% NACL 1,000 ML IV SCH ×2 (08:18→21:13)
[2019-11-21] MEDS: VANCOMYCIN 1 G PREMIX 200 ML IV SCH (08:47)
[2019-11-21] MEDS: ASCORBIC ACID 500 MG TABLET PO SCH ×2 (10:53→21:13)
[2019-11-21] MEDS: ASPIRIN 325MG EC TABLET PO SCH (10:53)
[2019-11-21] MEDS: ZINC SULFATE 220 MG ( 50 ) CAPSULE PO SCH (10:53)
[2019-11-21] MEDS: ENOXAPARIN 40MG/0.4ML SYR SUBCUT SCH (10:54)
[2019-11-21] MEDS: FAMOTIDINE 20MG TABLET PO SCH (21:13)
[2019-11-22] VITALS (10 sets, daily range): BP systolic 127–149; BP diastolic 60–81
[2019-11-22] MEDS: IPRATROPIUM/ALBUTEROL 0.5-3(2.5)MG/3ML NEB HHN SCH ×5 (00:44→16:25)
[2019-11-22] MEDS: BLOOD SUGAR DIAGNOSTIC STRIP TEST SCH ×3 (05:17→17:44)
[2019-11-22] MEDS: INSULIN LISPRO 100 UNITS/ML SUBCUT SCH ×3 (05:18→17:56)
[2019-11-22] MEDS: ZINC SULFATE 220 MG ( 50 ) CAPSULE PO SCH (10:02)
[2019-11-22] MEDS: ASPIRIN 325MG EC TABLET PO SCH (10:02)
[2019-11-22] MEDS: VANCOMYCIN 1 G PREMIX 200 ML IV SCH (10:02)
[2019-11-22] MEDS: ASCORBIC ACID 500 MG TABLET PO SCH (10:02)
[2019-11-22] MEDS: ENOXAPARIN 40MG/0.4ML SYR SUBCUT SCH (10:05)
[2019-11-22] MEDS: DEXT 5%/0.9% NACL 1,000 ML IV SCH (11:07)
== END 2019-11-22 19:52 | DRG 870 ==
LOC: ER 08:33 → SUPCPDRO 08:52 → 5EST 09:30 → EDBEDREQTM 09:50 → EDBEDREQ 09:50 → ENRESERV 14:41 → 5EST 17:02
PROVIDERS: ADMIT Internal Medicine; ATTEND Internal Medicine
PROC: 5A1955Z Respiratory Ventilation, Greater than 96 Consecutive Hours (ICD-10-PCS; principal; 2019-11-12)
PROC: 0D20XUZ Change Feeding Device in Upper Intestinal Tract, External Approach (ICD-10-PCS; 2019-11-13)
PROC: B54MZZA Ultrasonography of Right Upper Extremity Veins, Guidance (ICD-10-PCS; 2019-11-15)
PROC: 05HY33Z Insertion of Infusion Device into Upper Vein, Percutaneous Approach (ICD-10-PCS; 2019-11-15)
DX: A41.9 Sepsis, unspecified organism (principal); J96.21 Acute and chronic respiratory failure with hypoxia; J69.0 Pneumonitis due to inhalation of food and vomit; G92 Toxic encephalopathy; E43 Unspecified severe protein-calorie malnutrition; N39.0 Urinary tract infection, site not specified; N17.9 Acute kidney failure, unspecified; K94.23 Gastrostomy malfunction; E87.2 Acidosis; E87.1 Hypo-osmolality and hyponatremia; Z16.12 Extended spectrum beta lactamase (ESBL) resistance; R65.20 Severe sepsis without septic shock; E11.65 Type 2 diabetes mellitus with hyperglycemia; D63.8 Anemia in other chronic diseases classified elsewhere; F03.90 Unspecified dementia, unspecified severity, without behavioral disturbance, psychotic disturbance, mood disturbance, and anxiety; Z93.0 Tracheostomy status; B96.4 Proteus (mirabilis) (morganii) as the cause of diseases classified elsewhere; E78.00 Pure hypercholesterolemia, unspecified; E78.5 Hyperlipidemia, unspecified; F02.80 Dementia in other diseases classified elsewhere, unspecified severity, without behavioral disturbance, psychotic disturbance, mood disturbance, and anxiety; G20 Parkinson's disease; I25.10 Atherosclerotic heart disease of native coronary artery without angina pectoris; I50.9 Heart failure, unspecified; L30.9 Dermatitis, unspecified; R13.10 Dysphagia, unspecified; L89.209 Pressure ulcer of unspecified hip, unspecified stage; R47.02 Dysphasia; Y95 Nosocomial condition; Z79.4 Long term (current) use of insulin; Z79.82 Long term (current) use of aspirin; Z95.0 Presence of cardiac pacemaker; Z99.81 Dependence on supplemental oxygen; Z79.899 Other long term (current) drug therapy; Z91.011 Allergy to milk products; Z68.23 Body mass index [BMI] 23.0-23.9, adult; Z74.01 Bed confinement status
CPT/HCPCS: 36415; 36600; 71045; 76937; 80048; 80053; 80061; 80202; 81003; 82375; 82607; 82746; 82805; 82962; 83036; 83540; 83550; 83605; 84134; 84145; 84439; 84443; 84484; 85014; 85018; 85025; 87070; 87077; 87186; 87804; 93005; 93306; 93970; 94002; 94003; 94640; 94667; 96365; 96367; 97162; 99291; A6261; C1725; J1650; J1815; J2185; J2543; J3370; J7042; J7050; J7608; J7620; A4315

== ENCOUNTER 2021-10-25 16:23 | Inpatient (IN) | payer MEDICARE, MEDICAID ==
[~2021-10-25] VITALS: Ht 162.6 cm; Wt 54.9 kg
[2021-10-25] MEDS ORDERED: ALBUTEROL (0.083%) 2.5MG/3ML NEB HHN STA (17:31)
[2021-10-25 18:16] LABS: BASOPHILS % 0.3 % (0.0-2.0); EOSINOPHILS % 4.8 % (0.0-5.0); HEMATOCRIT. 22.4 % (36.0-48.0); HEMOGLOBIN. 7.3 g/dL (12.0-16.0); LYMPHOCYTES % 15.6 % (20.0-50.0); MEAN CORPUSCULAR HEMOGLOBIN 28.5 pg (28.0-32.0); MEAN CORPUSCULAR VOLUME 87.9 fL (81.0-99.0); MEAN PLATELET VOLUME 7.4 fl (7.4-10.4); MONOCYTES % 7.1 % (2.0-8.0); NEUTROPHILS % 72.2 % (40.0-76.0); PLATELET 196 x1000/uL (130-400); RED BLOOD CELL COUNT 2.55 mill/uL (4.2-5.4); RED CELL DISTRIBUTION WIDTH 15.9 % (11.6-14.6)
[2021-10-25 18:18] LABS: CHLORIDE 98 mEq/L (98-107)
[2021-10-25 18:21] LABS: INR 1.1; PROTHROMBIN TIME 11.4 sec (9.6-11.0)
[2021-10-25] MEDS ORDERED: PANTOPRAZOLE SODIUM 40 MG/VIAL IV ONE (18:30)
[2021-10-25] MEDS ORDERED: IPRATROPIUM/ALBUTEROL 0.5-3(2.5)MG/3ML NEB NEB PRN (19:30)
[2021-10-25] MEDS ORDERED: ONDANSETRON HCL 4MG/2ML INJ IV PRN (19:30)
[2021-10-25] MEDS ORDERED: DOCUSATE SODIUM 100MG CAPSULE PO PRN (19:30)
[2021-10-25] MEDS ORDERED: MAGNESIUM/ALUMINUM HYDROXIDE/SIMETHICONE 30ML UDC PO PRN (19:30)
[2021-10-25] MEDS ORDERED: GUAIFENESIN 200MG/10ML SUGAR FREE UDC PO PRN (19:30)
[2021-10-25] MEDS ORDERED: PIPERACILLIN/TAZ 3.375G PREMIX 50 ML IV SCH (19:30)
[2021-10-25] MEDS ORDERED: NITROGLYCERIN 0.4MG TABLET SL SL PRN (19:30)
[2021-10-25] MEDS ORDERED: CLONIDINE 0.1MG TABLET PO PRN (19:30)
[2021-10-25] MEDS ORDERED: ACETAMINOPHEN 325MG TABLET PO PRN ×2 (19:30)
[2021-10-25] MEDS: PANTOPRAZOLE SODIUM 40 MG/VIAL IV NR ×2 (19:45→21:21)
[2021-10-25] MEDS ORDERED: PIPERACILLIN/TAZ 3.375G PREMIX 50 ML IV NR (19:45)
[2021-10-25] MEDS ORDERED: VANCOMYCIN 1 G PREMIX 200 ML IV NR (19:45)
[2021-10-25 19:51] LABS: TOTAL IRON BINDING CAPACITY 358 ug/dL (250-450)
[2021-10-25 20:07] LABS: FOLIC ACID (FOLATE) SERUM >20 ng/mL ng/mL (>5.38)
[2021-10-25 20:19] LABS: VITAMIN B12 SERUM 1919 pg/mL (211-911)
[2021-10-25] MEDS ORDERED: ZOLPIDEM TARTRATE 5MG TABLET PO PRN (21:00)
[2021-10-25 23:54] LABS: CREATINE KINASE 66 IU/L (26-192); CREATINE KINASE MB FRACTION 1.6 ng/mL (0.5-3.6)
[2021-10-26] VITALS (13 sets, daily range): BP systolic 109–141; BP diastolic 54–92
[2021-10-26] MEDS: PIPERACILLIN/TAZOBACTAM 3.375G in DEXT 5% WATER 50ML IV SCH ×3 (06:50→22:17)
[2021-10-26] MEDS: IPRATROPIUM/ALBUTEROL 0.5-3(2.5)MG/3ML NEB HHN SCH ×4 (07:45→20:44)
[2021-10-26 07:48] LABS: BASOPHILS % 0.3 % (0.0-2.0); EOSINOPHILS % 1.2 % (0.0-5.0); LYMPHOCYTES % 18.6 % (20.0-50.0); MEAN CORPUSCULAR HEMOGLOBIN 29.4 pg (28.0-32.0); MEAN CORPUSCULAR VOLUME 89.3 fL (81.0-99.0); MEAN PLATELET VOLUME 7.3 fl (7.4-10.4); MONOCYTES % 10.5 % (2.0-8.0); NEUTROPHILS % 69.4 % (40.0-76.0); PLATELET 227 x1000/uL (130-400); RED BLOOD CELL COUNT 2.21 mill/uL (4.2-5.4)
[2021-10-26 07:53] LABS: HEMATOCRIT. 19.7 % (36.0-48.0); HEMOGLOBIN. 6.5 g/dL (12.0-16.0)
[2021-10-26 07:56] LABS: CHLORIDE 99 mEq/L (98-107)
[2021-10-26 08:04] LABS: PHOSPHORUS 4.3 mg/dL (2.5-4.9)
[2021-10-26 08:06] LABS: CREATINE KINASE 162 IU/L (26-192); CREATINE KINASE MB FRACTION 1.3 ng/mL (0.5-3.6)
[2021-10-26] MEDS: PANTOPRAZOLE SODIUM 40 MG/VIAL IV SCH (11:58)
[2021-10-26 17:11] LABS: BG BASE EXCESS 4.3 mmol/L (-2.0-2.0); BG CARBOXYHEMOGLOBIN 0.3 % (0.5-1.5); BG DEOXYHEMOGLOBIN 1.2 % (0.0-5.0); BG FRACTION INSPIRED OXYGEN 40; BG METHEMOGLOBIN 0.4 % (0.0-1.5); BG OXYGEN SATURATION 98.8 % (92.0-98.5); BG OXYHEMOGLOBIN 98.1 % (94.0-97.0); BG PCO2 38.2 mmHg (35.0-45.0); BG PH 7.483 (7.350-7.450); BG PO2 156.9 mmHg (75.0-100.0); BG SAMPLE SITE RIGHT RADIAL; BG TOTAL HEMOGLOBIN 8.9 g/dL (12.0-18.0); BG TOTAL RESPIRATORY RATE 14 b/min; BG VENT MODE VENT - SIMV
[2021-10-26] MEDS: VANCOMYCIN 750 MG PREMIX 150 ML IV SCH (19:50)
[2021-10-26 20:06] LABS: HEMATOCRIT 25.7 % (36.0-48.0); HEMOGLOBIN 8.6 g/dL (12.0-16.0)
[2021-10-27] VITALS (11 sets, daily range): BP systolic 106–166; BP diastolic 56–94
[2021-10-27] MEDS: IPRATROPIUM/ALBUTEROL 0.5-3(2.5)MG/3ML NEB HHN SCH ×6 (00:34→20:18)
[2021-10-27] MEDS: PIPERACILLIN/TAZOBACTAM 3.375G in DEXT 5% WATER 50ML IV SCH ×2 (05:00→13:59)
[2021-10-27] MEDS: PANTOPRAZOLE SODIUM 40 MG/VIAL IV SCH (10:58)
[2021-10-27] MEDS: VANCOMYCIN 750 MG PREMIX 150 ML IV SCH (17:20)
== END 2021-10-27 21:30 | DRG 811 ==
LOC: ER 16:23 → EDBEDREQ 16:50 → EDBEDREQTM 18:26 → EDBEDREQ 19:06 → EDBEDREQTM 19:06 → MICUSO 22:18 → 5EST 10-26 10:04
PROVIDERS: ADMIT Internal Medicine; ATTEND Internal Medicine
PROC: 0BH17EZ Insertion of Endotracheal Airway into Trachea, Via Natural or Artificial Opening (ICD-10-PCS; 2021-10-25)
PROC: 5A1945Z Respiratory Ventilation, 24-96 Consecutive Hours (ICD-10-PCS; 2021-10-25)
PROC: 30233N1 Transfusion of Nonautologous Red Blood Cells into Peripheral Vein, Percutaneous Approach (ICD-10-PCS; principal; 2021-10-26)
DX: D64.9 Anemia, unspecified (principal); G92.8 Other toxic encephalopathy; L89.153 Pressure ulcer of sacral region, stage 3; E43 Unspecified severe protein-calorie malnutrition; E87.1 Hypo-osmolality and hyponatremia; J96.10 Chronic respiratory failure, unspecified whether with hypoxia or hypercapnia; Z99.11 Dependence on respirator [ventilator] status; E11.9 Type 2 diabetes mellitus without complications; F03.90 Unspecified dementia, unspecified severity, without behavioral disturbance, psychotic disturbance, mood disturbance, and anxiety; I25.10 Atherosclerotic heart disease of native coronary artery without angina pectoris; I50.9 Heart failure, unspecified; R13.10 Dysphagia, unspecified; I11.0 Hypertensive heart disease with heart failure; K21.9 Gastro-esophageal reflux disease without esophagitis; Z20.822 Contact with and (suspected) exposure to COVID-19; Z86.73 Personal history of transient ischemic attack (TIA), and cerebral infarction without residual deficits; Z68.20 Body mass index [BMI] 20.0-20.9, adult; Z87.01 Personal history of pneumonia (recurrent); Z93.0 Tracheostomy status; Z93.1 Gastrostomy status; Z95.0 Presence of cardiac pacemaker; Z79.899 Other long term (current) drug therapy; Z79.82 Long term (current) use of aspirin
CPT/HCPCS: 36415; 36600; 71045; 80053; 82375; 82550; 82553; 82607; 82746; 82805; 83540; 83550; 83605; 83735; 84100; 84145; 84484; 85014; 85018; 85025; 86850; 86900; 86920; 87426; 93005; 93970; 94002; 94003; 94640; 99285; C9113; J2543; J3370; J7060; P9016